=== PATIENT | female | born 1960 | race American Indian/Alaskan Native ===

== ENCOUNTER 2019-04-20 10:08 | Inpatient (IN) | payer MEDICARE ==
--- NOTE | 2019-04-20 10:22 | Emergency Department Report ---
ED Neuro Deficit HPI - General Stated Complaint: HEADACHE Time Seen by Provider: 04/20/19 10:16 Source: patient, EMS - History of Present Illness Initial Comments: Patient is 58 years old female with history of left sided CVA with complete paralysis on the left upper extremity and weakness on the left lower extremity. Patient presented to the ER via EMS for evaluation of possible stroke. Patient stated that her symptoms started yesterday with a headache but today just prior to coming to the emergency room she started experiencing sweating and heaviness in her left lower extremity. Patient stated this is similar to her previous stroke in 2002. Patient denied any speech problem. Stroke protocol immediately initiated. Dr. Chris Cifuentes examined the patient several stroke telemetry. He indicated that patient is not a TPA candidate. He advised patient it to be admitted to stroke workup. He advised patient does not need a CTA neck or head and to proceed with MRA. -: Sudden Location: left leg Presenting Symptoms: Present: Weak/Paralyzed One Side Place: home Context: sudden onset Associated Symptoms: denies other symptoms - Related Data Home Medications: Home Medications Medication Instructions Recorded Confirmed Last Taken Aspirin 325 mg PO QDAY 04/20/19 04/20/19 Unknown Duloxetine HCl [Cymbalta] 60 mg PO QDAY 04/20/19 04/20/19 Unknown Levothyroxine [Synthroid] 25 mcg PO QAM 04/20/19 04/20/19 Unknown Loratadine [Claritin] 10 mg PO DAILY 04/20/19 04/20/19 Unknown Mirabegron [Myrbetriq] 25 mg PO QDAY 04/20/19 04/20/19 Unknown Naproxen [Naprosyn] 500 mg PO DAILY 04/20/19 04/20/19 Unknown Pravastatin [Pravachol] 20 mg PO DAILY 04/20/19 04/20/19 Unknown clonazePAM [ Klonopin] 0.5 mg PO BID PRN 04/20/19 04/20/19 Unknown metFORMIN XR [Glucophage XR] 500 mg PO QDAY 04/20/19 04/20/19 Unknown oxyCODONE /ACETAMINOPHEN [Percocet 1 tab PO BID PRN 04/20/19 04/20/19 Unknown 5/325] traZODone [Desyrel] 50 mg PO QHS 04/20/19 04/20/19 Unknown Allergies/Adverse Reactions: Allergies Allergy/AdvReac Type Severity Reaction Status Date / Time Penicillins Allergy Unknown Verified 04/20/19 10:15 ED Review of Systems ROS: Stated complaint: HEADACHE Other details as noted in HPI Comment: All other systems reviewed and negative Constitutional: denies: chills, fever Respiratory: denies: see HPI, shortness of breath, SOB with exertion Cardiovascular: denies: chest pain, palpitations Gastrointestinal: denies: abdominal pain, nausea, vomiting Musculoskeletal: denies: back pain Neurological: denies: headache, weakness ED Past Medical Hx - Medications Home Medications: Home Medications Medication Instructions Recorded Confirmed Last Taken Type Aspirin 325 mg PO QDAY 04/20/19 04/20/19 Unknown History Duloxetine HCl [Cymbalta] 60 mg PO QDAY 04/20/19 04/20/19 Unknown History Levothyroxine [Synthroid] 25 mcg PO QAM 04/20/19 04/20/19 Unknown History Loratadine [Claritin] 10 mg PO DAILY 04/20/19 04/20/19 Unknown History Mirabegron [Myrbetriq] 25 mg PO QDAY 04/20/19 04/20/19 Unknown History Naproxen [Naprosyn] 500 mg PO DAILY 04/20/19 04/20/19 Unknown History Pravastatin [Pravachol] 20 mg PO DAILY 04/20/19 04/20/19 Unknown History clonazePAM [ Klonopin] 0.5 mg PO BID PRN 04/20/19 04/20/19 Unknown History metFORMIN XR [Glucophage XR] 500 mg PO QDAY 04/20/19 04/20/19 Unknown History oxyCODONE /ACETAMINOPHEN [Percocet 1 tab PO BID PRN 04/20/19 04/20/19 Unknown History 5/325] traZODone [Desyrel] 50 mg PO QHS 04/20/19 04/20/19 Unknown History ED Neuro Physical Exam - General Limitations: Physical Limitation General appearance: alert, in no apparent distress Suspected Stroke: Yes - Head Head exam: Present: atraumatic, normocephalic, normal inspection - Eye Eye exam: Present: normal appearance - ENT ENT exam: Present: normal exam, normal orophraynx, mucous membranes moist - Neck Neck exam: Present: normal inspection, full ROM. Absent: tenderness, meningismus, lymphadenopathy, thyromegaly - Respiratory Respiratory exam: Present: normal lung sounds bilaterally - Cardiovascular Cardiovascular Exam: Present: regular rate, normal rhythm, normal heart sounds - GI/Abdominal GI/Abdominal exam: Present: soft, normal bowel sounds. Absent: distended, tenderness, guarding, rebound, rigid, organomegaly, mass, bruit, pulsatile mass, hernia - Extremities Exam Extremities exam: Present: normal inspection, full ROM. Absent: tenderness, calf tenderness - Back Exam Back exam: Present: normal inspection, full ROM. Absent: CVA tenderness (R), CVA tenderness (L) - Neurological Exam Neurological exam: Present: alert, oriented X3, CN II-XII intact - NIHSS Assessment Interval: Baseline 1a. Level of Consciousness: alert/keenly responsive 1b. LOC Questions: answers both correctly 1c. LOC Commands: performs tasks correctly 2. Best Gaze: normal 3. Visual: no visual loss 4. Facial Palsy: normal symmetrical movement 5b. Motor Arm Right: no drift 5a. Motor Arm Left: no movement 6a. Motor Leg Left: drift 6b. Motor Leg Right: no drift 7. Limb Ataxia: absent 8. Sensory: mild/moderate sensory loss 9. Best Language: no aphasia 10. Dysarthria: normal 11. Extinction/Inattention: no abnormality Total Score: 6 Stroke Severity: Moderate Stroke - Skin Skin exam: Present: warm, intact, normal color ED Course Vital Signs 04/20/19 04/20/19 04/20/19 10:58 11:00 11:08 Temperature 98.5 F Pulse Rate 58 L 57 L Respiratory 13 14 18 Rate Blood Pressure 148/52 Blood Pressure 137/65 [Left] O2 Sat by Pulse 97 95 96 Oximetry 04/20/19 04/20/19 11:45 12:45 Temperature Pulse Rate 58 L 58 L Respiratory 16 13 Rate Blood Pressure 133/62 148/52 Blood Pressure [Left] O2 Sat by Pulse 96 99 Oximetry - Lab Data Result diagrams: 04/20/19 10:30 04/20/19 10:30 Lab Results 04/20/19 04/20/19 04/20/19 Range/Units 10:30 10:30 10:30 WBC 7.8 (4.5-11.0) K/mm3 RBC 4.37 (3.65-5.03) M/mm3 Hgb 13.9 (10.1-14.3) gm/dl Hct 40.6 (30.3-42.9) % MCV 93 (79-97) fl MCH 32 (28-32) pg MCHC 34 (30-34) % RDW 13.6 (13.2-15.2) % Plt Count 283 (140-440) K/mm3 Lymph % (Auto) 22.0 (13.4-35.0) % [place] % (Auto) 6.7 (0.0-7.3) % Eos % (Auto) 1.2 (0.0-4.3) % Baso % (Auto) 1.4 (0.0-1.8) % Lymph # 1.7 (1.2-5.4) K/mm3 [place] # 0.5 (0.0-0.8) K/mm3 Eos # 0.1 (0.0-0.4) K/mm3 Baso # 0.1 (0.0-0.1) K/mm3 Seg Neutrophils % 68.7 (40.0-70.0) % Seg Neutrophils # 5.3 (1.8-7.7) K/mm3 PT 13.4 (12.2-14.9) Sec. INR 0.96 (0.87-1.13) APTT 26.8 (24.2-36.6) Sec. Thrombin Time 15.0 L (15.1-19.6) Sec. Sodium 140 (137-145) mmol/L Potassium 3.8 (3.6-5.0) mmol/L Chloride 99.0 (98-107) mmol/L Carbon Dioxide 28 (22-30) mmol/L Anion Gap 17 mmol/L BUN 10 (7-17) mg/dL Creatinine 0.6 L (0.7-1.2) mg/dL Estimated GFR > 60 ml/min BUN/Creatinine Ratio 17 % Glucose 160 H (65-100) mg/dL POC Glucose (70-105) Calcium 9.1 (8.4-10.2) mg/dL Troponin T < 0.010 (0.00-0.029) ng/mL 04/20/19 Range/Units 10:33 WBC (4.5-11.0) K/mm3 RBC (3.65-5.03) M/mm3 Hgb (10.1-14.3) gm/dl Hct (30.3-42.9) % MCV (79-97) fl MCH (28-32) pg MCHC (30-34) % RDW (13.2-15.2) % Plt Count (140-440) K/mm3 Lymph % (Auto) (13.4-35.0) % [place] % (Auto) (0.0-7.3) % Eos % (Auto) (0.0-4.3) % Baso % (Auto) (0.0-1.8) % Lymph # (1.2-5.4) K/mm3 [place] # (0.0-0.8) K/mm3 Eos # (0.0-0.4) K/mm3 Baso # (0.0-0.1) K/mm3 Seg Neutrophils % (40.0-70.0) % Seg Neutrophils # (1.8-7.7) K/mm3 PT (12.2-14.9) Sec. INR (0.87-1.13) APTT (24.2-36.6) Sec. Thrombin Time (15.1-19.6) Sec. Sodium (137-145) mmol/L Potassium (3.6-5.0) mmol/L Chloride (98-107) mmol/L Carbon Dioxide (22-30) mmol/L Anion Gap mmol/L BUN (7-17) mg/dL Creatinine (0.7-1.2) mg/dL Estimated GFR ml/min BUN/Creatinine Ratio % Glucose (65-100) mg/dL POC Glucose 157 H (70-105) Calcium (8.4-10.2) mg/dL Troponin T (0.00-0.029) ng/mL - EKG Data -: EKG Interpreted by [facility] EKG shows normal: sinus rhythm Rate: normal Interpretation: no acute changes - Radiology Data Radiology results: report reviewed CT brain is negative for acute finding. Old right parietal stroke. - Medical Decision Making Patient is 58 years old female with history of left sided CVA with complete paralysis on the left upper extremity and weakness on the left lower extremity. Patient presented to the ER via EMS for evaluation of possible stroke. Patient stated that her symptoms started yesterday with a headache but today just prior to coming to the emergency room she started experiencing sweating and heaviness in her left lower extremity. Patient stated this is similar to her previous st roke in 2002. Patient denied any speech problem. Stroke protocol immediately initiated. Dr. Chris Cifuentes examined the patient several stroke telemetry. He indicated that patient is not a TPA candidate. He advised patient it to be admitted to stroke workup. He advised patient does not need a CTA neck or head and to proceed with MRA. I discussed the patient with Dr Dhaliwal, he agreed to admit to medical service for further management. Critical Care Time: Yes Critical care time in (mins) excluding proc time.: 30 Critical care attestation.: If time is entered above; I have spent that time in minutes in the direct care of this critically ill patient, excluding procedure time. ED Disposition Clinical Impression: Left hemiparesis CVA (cerebral vascular accident) Qualifiers: Precerebral and cerebral artery: middle cerebral artery Laterality of affected vessel: right Disposition: DC-09 OP ADMIT IP TO THIS HOSP Is pt being admited?: Yes Condition: Stable
--- NOTE | 2019-04-20 10:36 | Cat Scan Report ---
PROCEDURE: CT HEAD/BRAIN WO CON TECHNIQUE: A noncontrast CT of the head was performed. HISTORY: neuro deficits <6hrs or sx present upon awakening COMPARISON: None FINDINGS: There is a large old right frontal parietal infarct. There is no acute intracranial hemorrhage. There is no brain edema, mass effect or midline shift. Ventricular size is appropriate for brain volume. There is no skull fracture seen. There is opacification of left maxillary sinus. 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 IMPRESSION: There is no acute intracranial abnormality seen. Large old right frontal parietal infarc t. This document is electronically signed by Deloris Price MD., April 20 2019 10:33:56 AM ET
[2019-04-20 10:44] LABS: Basophils # (Auto) 0.1 K/mm3 (0.0-0.1); Basophils % (Auto) 1.4 % (0.0-1.8); Eosinophils # (Auto) 0.1 K/mm3 (0.0-0.4); Eosinophils % (Auto) 1.2 % (0.0-4.3); Hematocrit 40.6 % (30.3-42.9); Hemoglobin 13.9 gm/dl (10.1-14.3); Lymphocytes # (Auto) 1.7 K/mm3 (1.2-5.4); Mean Corpuscular HGB Conc 34 % (30-34); Mean Corpuscular Volume 93 fl (79-97); Monocytes # (Auto) 0.5 K/mm3 (0.0-0.8); Monocytes % (Auto) 6.7 % (0.0-7.3); Platelet Count 283 K/mm3 (140-440); Red Blood Count 4.37 M/mm3 (3.65-5.03); Red Cell Distribution Width 13.6 % (13.2-15.2)
[2019-04-20 11:04] LABS: BUN/Creatinine Ratio 17; Blood Urea Nitrogen 10 mg/dL (7-17); Calcium 9.1 mg/dL (8.4-10.2); Hemolysis Index 7
[2019-04-20 11:10] LABS: INR 0.96 (0.87-1.13)
[2019-04-20 11:11] LABS: Partial Thromboplastin Time 26.8 Sec. (24.2-36.6)
--- NOTE | 2019-04-20 11:35 | Emergency Department Report ---
ED Neuro Deficit HPI - General Chief Complaint: Neuro Symptoms/Deficit Stated Complaint: HEADACHE Time Seen by Provider: 04/20/19 10:16 Source: patient, EMS Mode of arrival: Stretcher Limitations: Physical Limitation - History of Present Illness Initial Comments: * past R MCA stroke in 2002, residual L side weakness * also L ankle injury 2013, wears boot chronically since then * to bed at baseline last evening at 2030 * up at 0930, noted to be diaphoretic * attempted to walk to bathroom, noted imbalance (more than normal) * in bathroom to prevent herself from falling had to grab the shower door * states felt like LLE was a bit weaker * also noted prominent headache * to ER for further evaluation * arrived at 1008 * call to teleneuro at 1017 * connected at 1022 * eval at 1026 * NIHSS 6, but all appear chronic based on appearance (inc tone) and description by patient * no tPA due to no acute neurological symptoms * no DAPHNIE as no LVO symptoms (no visual field deficit, no aphasia, no neglect, no new dense HP) * CT head shows large area of R MCA territory cystic encephalomalacia consistent with prior stroke -: Sudden Time: 10:26 Last Observed Normal: 20:30 (last night 04/19/19) Location: left leg Presenting Symptoms: Present: Weak/Paralyzed One Side History of same: Yes (residual L HP from old R MCA stroke 2002) Place: home Associated Symptoms: headaches - Related Data Allergies/Adverse Reactions: Allergies Allergy/AdvReac Type Severity Reaction Status Date / Time Penicillins Allergy Unknown Verified 04/20/19 10:15 ED Review of Systems ROS: Stated complaint: HEADACHE Other details as noted in HPI Constitutional: denies: chills, fever Respiratory: denies: see HPI, shortness of breath, SOB with exertion Cardiovascular: denies: chest pain, palpitations Gastrointestinal: denies: abdominal pain, nausea, vomiting Musculoskeletal: denies: back pain Neurological: denies: headache, weakness ED Past Medical Hx - Past Medical History Previous Medical History?: Yes Hx Hypertension: Yes Additional medical history: Stroke - Social History Smoking Status: Current Every Day Smoker Substance Use Type: Alcohol ED Neuro Physical Exam - General Limitations: Physical Limitation General appearance: alert, in no apparent distress Suspected Stroke: Yes - NIHSS Assessment Interval: Baseline 1a. Level of Consciousness: alert/keenly responsive 1b. LOC Questions: answers both correctly 1c. LOC Commands: performs tasks correctly 2. Best Gaze: normal 3. Visual: no visual loss 4. Facial Palsy: minor paralysis 5b. Motor Arm Right: no drift 5a. Motor Arm Left: no gravity effort 6a. Motor Leg Left: drift 6b. Motor Leg Right: no drift 7. Limb Ataxia: absent 8. Sensory: mild/moderate sensory loss 9. Best Language: no aphasia 10. Dysarthria: normal 11. Extinction/Inattention: no abnormality Total Score: 6 Stroke Severity: Moderate Stroke ED Course Vital Signs 04/20/19 04/20/19 10:58 11:08 Temperature 98.5 F Pulse Rate 58 L Respiratory 13 18 Rate Blood Pressure 137/65 [Left] O2 Sat by Pulse 97 96 Oximetry - Consultations Consultation #1: 04/20/19 11:38 Teleneurology Impression/Plan" Imbalance Chronic L HP * old R MCA stroke, chr L hemiparesis (arm > leg) * new imbalance this AM, ? if worsened LLE weakness * now seems at or near described baseline * NIHSS 6 * no tPA due to time --> last normal when to bed at 2030 * no DAPHNIE as no LVO pattern of acute symptoms * admission for further work-up * ASA OK * dysphagia screen * DVT prophylaxis * discussed with ED physician - Lab Data Result diagrams: 04/20/19 10:30 04/20/19 10:30 Lab Results 04/20/19 04/20/19 04/20/19 Range/Units 10:30 10:30 10:30 WBC 7.8 (4.5-11.0) K/mm3 RBC 4.37 (3.65-5.03) M/mm3 Hgb 13.9 (10.1-14.3) gm/dl Hct 40.6 (30.3-42.9) % MCV 93 (79-97) fl MCH 32 (28-32) pg MCHC 34 (30-34) % RDW 13.6 (13.2-15.2) % Plt Count 283 (140-440) K/mm3 Lymph % (Auto) 22.0 (13.4-35.0) % [place] % (Auto) 6.7 (0.0-7.3) % Eos % (Auto) 1.2 (0.0-4.3) % Baso % (Auto) 1.4 (0.0-1.8) % Lymph # 1.7 (1.2-5.4) K/mm3 [place] # 0.5 (0.0-0.8) K/mm3 Eos # 0.1 (0.0-0.4) K/mm3 Baso # 0.1 (0.0-0.1) K/mm3 Seg Neutrophils % 68.7 (40.0-70.0) % Seg Neutrophils # 5.3 (1.8-7.7) K/mm3 PT 13.4 (12.2-14.9) Sec. INR 0.96 (0.87-1.13) APTT 26.8 (24.2-36.6) Sec. Thrombin Time 15.0 L (15.1-19.6) Sec. Sodium 140 (137-145) mmol/L Potassium 3.8 (3.6-5.0) mmol/L Chloride 99.0 (98-107) mmol/L Carbon Dioxide 28 (22-30) mmol/L Anion Gap 17 mmol/L BUN 10 (7-17) mg/dL Creatinine 0.6 L (0.7-1.2) mg/dL Estimated GFR > 60 ml/min BUN/Creatinine Ratio 17 % Glucose 160 H (65-100) mg/dL Calcium 9.1 (8.4-10.2) mg/dL Troponin T < 0.010 (0.00-0.029) ng/mL - Radiology Data Radiology results: image reviewed CT head - reviewed - chronic cystic encephalomalacia R MCA territory c/w remote stroke - Thrombolytic Inclusion/Exclusion Thrombolytic Exclusion Criteria: Symptom Onset > 3 Hours Critical care attestation.: If time is entered above; I have spent that time in minutes in the direct care of this critically ill patient, excluding procedure time. ED Disposition Clinical Impression: Left hemiparesis Disposition: DC-09 OP ADMIT IP TO THIS HOSP Is pt being admited?: Yes Condition: Stable Referrals: CAYETANO JUARES MD [Primary Care Provider] - 3-5 Days
[2019-04-20] MEDS ORDERED: TYLENOL PO ONE (11:51)
[2019-04-20] MEDS ORDERED: TYLENOL ONE (11:54)
[2019-04-20] MEDS ORDERED: DULCOLAX PR PRN (12:06)
[2019-04-20] MEDS ORDERED: ZOFRAN IV PRN (12:06)
[2019-04-20] MEDS ORDERED: MILK OF MAGNESIA PO PRN (12:06)
[2019-04-20] MEDS ORDERED: REGLAN PO PRN (12:06)
[2019-04-20] MEDS ORDERED: PROVENTIL IH PRN (12:06)
[2019-04-20] MEDS ORDERED: PHENERGAN PR PRN (12:06)
[2019-04-20] MEDS ORDERED: SODIUM CHLORIDE FLUSH SYRINGE 10 ML IV PRN (12:06)
--- NOTE | 2019-04-20 12:06 | History and Physical Report ---
History of Present Illness Chief complaint: I feel weak History of present illness: 58 YO Female with HTN, HLD, CVA with LHP, Hypothyroidism, DM presents to ED for evaluation. Pt states that she has experienced weakness in her left leg over the past 1 day with persistent symptoms over the same time frame. Pt states that symptoms did not improve or resolve. EMS notified, and upon arrival the patient was found to have a neurologic deficit. A code stroke was called and the patient transported to [facility]. Pt seen and evaluated in ED. Teleneurology consulted in ED. Pt deemed not a candidate for TPA. Pt admitted to telemetry and initiated on CVA protocol. Pt denies fever, chills, CP, Palpitations, NVD, Trauma, Syncope, Productive cough, loss of bowel/bladder continence. No prior admission for review. All listed medication reconciled at time of admission. Neurology consulted in ED. Past History Past Medical History: hypertension, hyperlipidemia, hypothyroidism, stroke, other (Depression) Past Surgical History: No surgical history, Other (reviewed) Social history: single. denies: smoking, alcohol abuse Family history: hypertension Medications and Allergies Allergies Allergy/AdvReac Type Severity Reaction Status Date / Time Penicillins Allergy Unknown Verified 04/20/19 10:15 Home Medications Medication Instructions Recorded Confirmed Last Taken Type Aspirin 325 mg PO QDAY 04/20/19 04/20/19 Unknown History Duloxetine HCl [Cymbalta] 60 mg PO QDAY 04/20/19 04/20/19 Unknown History Levothyroxine [Synthroid] 25 mcg PO QAM 04/20/19 04/20/19 Unknown History Loratadine [Claritin] 10 mg PO DAILY 04/20/19 04/20/19 Unknown History Mirabegron [Myrbetriq] 25 mg PO QDAY 04/20/19 04/20/19 Unknown History Naproxen [Naprosyn] 500 mg PO DAILY 04/20/19 04/20/19 Unknown History Pravastatin [Pravachol] 20 mg PO DAILY 04/20/19 04/20/19 Unknown History clonazePAM [ Klonopin] 0.5 mg PO BID PRN 04/20/19 04/20/19 Unknown History metFORMIN XR [Glucophage XR] 500 mg PO QDAY 04/20/19 04/20/19 Unknown History oxyCODONE /ACETAMINOPHEN [Percocet 1 tab PO BID PRN 04/20/19 04/20/19 Unknown History 5/325] traZODone [Desyrel] 50 mg PO QHS 04/20/19 04/20/19 Unknown History Review of Systems Constitutional: no weight loss, no fever, no sweats Ears, nose, mouth and throat: no ear pain, no ear discharge, no nose pain, no nasal discharge Breasts: no change in shape, no swelling, no mass Cardiovascular: no chest pain, no orthopnea, no palpitations, no edema Respiratory: no excessive sputum, no hemoptysis, no shortness of breath Gastrointestinal: no abdominal pain, no vomiting, no constipation, no hematemesis Genitourinary Female: no pelvic pain, no flank pain, no post void dribbling Rectal: no pain, no incontinence, no bleeding Musculoskeletal: no neck stiffness, no neck pain, no shooting arm pain, no arm numbness/tingling Integumentary: no rash, no pruritis, no redness, no sores Neurological: weakness, parathesias, lack of coordination, gait dysfunction, no seizures, no syncope, no change in speech Psychiatric: no anxiety, no change in sleep habits, no insomnia, no change in appetite Endocrine: no cold intolerance, no polyphagia, no polydipsia, no nocturia Hematologic/Lymphatic: no easy bruising, no easy bleeding, no lymphadenopathy, no lymphedema Allergic/Immunologic: no urticaria, no allergic rhinitis, no wheezing Exam - Constitutional Vitals: Temp Pulse Resp BP Pulse Ox 98.5 F 58 L 18 137/65 96 04/20/19 10:58 04/20/19 10:58 04/20/19 11:08 04/20/19 10:58 04/20/19 11:08 General appearance: Present: mild distress - EENT Eyes: Present: PERRL ENT: hearing intact, clear oral mucosa - Neck Neck: Present: supple, normal ROM - Respiratory Respiratory effort: normal Respiratory: bilateral: CTA - Cardiovascular Heart Sounds: Present: S1 & S2. Absent: rub, click - Extremities Extremities: pulses symmetrical, No edema Peripheral Pulses: within normal limits - Abdominal General gastrointestinal: Present: soft, non-tender, non-distended, normal bowel sounds Female genitourinary: Present: normal - Integumentary Integumentary: Present: clear, warm, dry - Musculoskeletal Musculoskeletal: left sided weakness - Psychiatric Psychiatric: appropriate mood/affect, intact judgment & insight - Neurologic Neurologic: CNII-XII intact, moves all extremities, no gait normal Results - Labs CBC & Chem 7: 04/20/19 10:30 04/20/19 10:30 Labs: Abnormal lab results 04/20/19 04/20/19 Range/Units 10:30 10:30 Thrombin Time 15.0 L (15.1-19.6) Sec. Creatinine 0.6 L (0.7-1.2) mg/dL Glucose 160 H (65-100) mg/dL Assessment and Plan - Patient Problems (1) CVA (cerebral vascular accident) Current Visit: Yes Status: Acute Qualifiers: Precerebral and cerebral artery: middle cerebral artery Laterality of affected vessel: right Plan to address problem: Stroke Protocol: CT Head, MRI Brain, MRA, Echo, CArotid doppler, PT/OT/Speech therapy, lipid panel, statin therapy, antiplatelet therapy, neurology consulted, permissive hypertension overnight. (2) HTN (hypertension) Current Visit: Yes Status: Acute Qualifiers: Hypertension type: essential hypertension Qualified Code(s): I10 - Essential (primary) hypertension Plan to address problem: Monitor BP q shift, permissive hypertensioin overnight (3) HLD (hyperlipidemia) Current Visit: Yes Status: Acute Qualifiers: Hyperlipidemia type: mixed hyperlipidemia Qualified Code(s): E78.2 - Mixed hyperlipidemia Plan to address problem: lipid panel, statin therapy, (4) Hypothyroid Current Visit: Yes Status: Acute Qualifiers: Hypothyroidism type: acquired Qualified Code(s): E03.9 - Hypothyroidism, unspecified Plan to address problem: continue synthroid, supportive care. (5) DVT prophylaxis Current Visit: Yes Status: Acute Plan to address problem: SCD to BLE while in bed, (6) Left hemiparesis Current Visit: Yes Status: Acute
[2019-04-20] MEDS ORDERED: PERCOCET 5/325 PO PRN (12:09)
[2019-04-20] MEDS: TYLENOL PO PRN (16:45)
--- NOTE | 2019-04-20 19:00 | Magnetic Resonance Report ---
PROCEDURE: MR BRAIN WO CON TECHNIQUE: Magnetic resonance imaging of the brain was performed without contrast material. HISTORY: stroke COMPARISONS: Prior CT scan of the brain 04/20/2019 . FINDINGS: There is a large area of encephalomalacia involving the right frontal lobe, portions of the right tem poral lobe right parietal lobe and insular cortex and portions of the right basal ganglia. Portions o f the right thalamus also visualized. This all appears chronic. There is no abnormal restricted diffu maria c that would suggest an acute ischemic event. No intracranial hemorrhage is visualized. There is m ild compensatory enlargement of the right lateral ventricle. The ventricles are otherwise normal size and midline. No abnormal extra-axial fluid collections or masses are identified. Pituitary fossa and foramen magnum are unremarkable. Encephalomalacia involves portions of the right side of the corpus callosum which is otherwise unremarkable. There is complete opacification of the left maxillary sinus. Suspect there is mucosal thickening and possibly mucous retention cysts. I cannot exclude fluid in the left maxillary sinus. Paranasal sinuse s otherwise are clear. Mastoid air cells are clear. IMPRESSION: Large old area of encephalomalacia seen involving right middle cerebral and right anterior cerebral a rtery distribution. No acute intracranial abnormalities are seen. No evidence of acute ischemic event . Compensatory enlargement right lateral ventricle. The ventricles are midline. No evidence of intracranial hemorrhage. Paranasal sinus disease as described. This document is electronically signed by Leonardo Mcclure MD., April 20 2019 06:58:49 PM ET
--- NOTE | 2019-04-20 19:08 | Magnetic Resonance Report ---
PROCEDURE: MR MRA/MRV HEAD WO CON TECHNIQUE: Axial 3-D [id number] MR angiography of the [place] and brain was performed. The source images were reconstructed in various views using maximum intensity projection. HISTORY: stroke COMPARISONS: None . FINDINGS: Visualized vertebral arteries are patent. There is a dominant left vertebral artery, normal variant. The basilar artery appears widely patent. Posterior cerebral arteries are patent. There is a patent r ight posterior communicating artery. Visualized internal carotid arteries appear widely patent. The carotid siphons are widely patent. Mid dle cerebral arteries and A1 segments as well as the anterior cerebral artery are patent. Peripheral branches of the right middle cerebral artery are decreased in number. Peripheral branches of the left middle cerebral artery are unremarkable. No changes are seen that would suggest aneurysm or vascular malformation. IMPRESSION: The anterior and middle cerebral arteries bilaterally are patent however the peripheral branches of t he right middle cerebral artery and right anterior cerebral artery are decreased in number. This does correspond to the large areas of encephalomalacia seen on the MRI of the brain also performed today. Posterior circulation is intact. This document is electronically signed by Leonardo Mcclure MD., April 20 2019 07:06:50 PM ET
[2019-04-21] MEDS: DESYREL PO SCH ×2 (03:31→22:07)
[2019-04-21] MEDS: SYNTHROID PO SCH (09:42)
[2019-04-21] MEDS: CYMBALTA PO SCH (09:42)
[2019-04-21] MEDS: CLARITIN PO SCH (09:42)
[2019-04-21] MEDS: NAPROSYN PO SCH (09:42)
[2019-04-21] MEDS: ASPIRIN PO SCH (09:42)
[2019-04-21] MEDS ORDERED: NON-FORMULARY (Duloxetine Hcl [Cymbalta] 60 MG) PO SCH (10:00)
[2019-04-21] MEDS ORDERED: NON-FORMULARY (Mirabegron [Myrbetriq] 25 MG) PO SCH (10:00)
[2019-04-21 10:55] LABS: Chol/HDL Ratio 3.56 %
--- NOTE | 2019-04-21 16:42 | Progress Note ---
Assessment and Plan Possible TIA - Patient admitted with stroke protocol - Negative MRI/MRA - Continue aspirin and statin - Knee relieve L pending - We'll also follow PT recommendation and 2-D echo report History of previous CVA, continue supportive care, follow neuro recommendation and PT eval Hypothyroidism, continue Synthroid Diabetes mellitus type 2 - Continue consistent carb diet with SSI Hyperlipidemia, continue statin DVT prophylaxis, continue Lovenox Disposition: Likely tomorrow following neuro recommendation and pending 2-D echo report Brief History: Patient is 58 years old female with history of left sided CVA with complete paralysis on the left upper extremity and weakness on the left lower extremity presented to the ER via EMS for evaluation of headache and heaviness in her left lower extremity. Patient stated this is similar to her previous stroke in 2002. Patient denied any speech problem. Stroke protocol immediately initiated. Dr. Chris Cifuentes examined the patient several stroke telemetry. He indicated that patient is not a TPA candidate. He advised patient it to be admitted to stroke workup. He advised patient does not need a CTA neck or head and to proceed with MRA. Radiological data: CT head MRI/MRA brain pending 2-D echo Hospitalist Physical exam: GENERAL: well-developed and well-nourished white female lying on bed appeared to be in no discomfort. HEENT: Normocephalic. Atraumatic. No conjunctival congestion or icterus. P atient has moist mucous membranes. NECK: Supple. Trachea midline. CHEST/LUNGS: Clear to auscultated bilaterally, breathing nonlabored. No wheezes crackles or rhonchi. HEART/CARDIOVASCULAR: Regular in rate and rhythm. S1 and S2 positive. ABDOMEN: Abdomen is soft, nontender. Patient has normal bowel sounds. SKIN: There is no rash. Warm and dry. NEURO: Left-sided weakness. Follows command. MUSCULOSKELETAL: No joint effusion or tenderness. EXTRIMITY: No edema, no cyanosis or clubbing. PSYCH: Cooperative. Subjective Date of service: 04/21/19 Interval history: Patient seen and examined. Medical records and medication list reviewed. No acute event overnight noted by the RN. Patient denies any chest pain or difficulty breathing. Patient is tolerating diet. Discussed plan of care at bedside with patient. Objective - Constitutional Vitals: Vital Signs - 12hr 04/21/19 04/21/19 07:52 10:00 Temperature 98.8 F Pulse Rate 57 L Respiratory 16 Rate Blood Pressure 111/46 O2 Sat by Pulse 94 94 Oximetry - Labs CBC & Chem 7: 04/20/19 10:30 04/20/19 10:30 Labs: Abnormal lab results 04/20/19 04/20/19 04/21/19 Range/Units 18:17 21:08 07:18 POC Glucose 150 H 122 H 160 H (70-105) Triglycerides (2-149) mg/dL 04/21/19 Range/Units 09:49 POC Glucose (70-105) Triglycerides 201 H (2-149) mg/dL
[2019-04-21] MEDS: HumaLOG SUB-Q SCH (22:16)
--- NOTE | 2019-04-22 09:13 | Progress Note ---
Subjective Date of service: 04/22/19 Interval history: patient seen and assessed PMH of massive brain bleed due to BCP in 2002 in [place] now new onset of severe sweating andf headaches could be TIA therefore w/u is pending plan review all labs exam shows old left arm paralysis Thanks Objective - Vital Sign Vital Signs - 12hr 04/21/19 04/22/19 04/22/19 23:29 02:36 04:13 Temperature 98.0 F 98.0 F Pulse Rate 71 71 56 L Respiratory 18 18 Rate Blood Pressure 115/51 108/48 O2 Sat by Pulse 96 96 Oximetry 04/22/19 04/22/19 07:10 08:42 Temperature 98.2 F Pulse Rate Respiratory 18 Rate Blood Pressure 122/50 O2 Sat by Pulse 95 Oximetry - Laboratory Findings CBC and BMP: 04/20/19 10:30 04/20/19 10:30 Abnormal Lab Findings: Abnormal Labs 04/20/19 04/20/19 04/20/19 10:30 10:30 10:33 Thrombin Time 15.0 L Creatinine 0.6 L Glucose 160 H POC Glucose 157 H Triglycerides 04/20/19 04/20/19 04/21/19 18:17 21:08 07:18 Thrombin Time Creatinine Glucose POC Glucose 150 H 122 H 160 H Triglycerides 04/21/19 04/21/19 04/21/19 09:49 16:35 20:20 Thrombin Time Creatinine Glucose POC Glucose 158 H 152 H Triglycerides 201 H 04/22/19 07:16 Thrombin Time Creatinine Glucose POC Glucose 163 H Triglycerides
[2019-04-22] MEDS: SYNTHROID PO SCH (09:32)
[2019-04-22] MEDS: CYMBALTA PO SCH (09:32)
[2019-04-22] MEDS: CLARITIN PO SCH (09:33)
[2019-04-22] MEDS: ASPIRIN PO SCH (09:33)
[2019-04-22] MEDS: NAPROSYN PO SCH (09:33)
[2019-04-22] MEDS: HumaLOG SUB-Q SCH ×3 (09:34→22:31)
--- NOTE | 2019-04-22 13:04 | Discharge Summary ---
Providers - Providers Date of Admission: 04/20/19 12:06 Date of discharge: 04/22/19 Attending physician: NEDA LOUISE 04/20/19 12:07 Occupational Therapy Evaluate and Treat [CONS] Routine Comment: Reason For Exam: Neuro deficits Physical Therapy Evaluation and Treat [CONS] Routine Comment: Reason For Exam: Neuro deficits 04/20/19 12:08 Speech Therapy Evaluation and Treat [CONS] Routine Reason For Exam: swallow eval 04/21/19 16:37 Consult to Physician [CONS] Routine Comment: Consulting Provider: LUDY DUARTE Physician Instructions: Reason For Exam: headache [facility] Condition: Stable Hospital course: Brief History: Patient is 58 years old female with history of left sided CVA with complete paralysis on the left upper extremity and weakness on the left lower extremity presented to the ER via EMS for evaluation of headache and heaviness in her left lower extremity. Patient stated this is similar to her previous stroke in 2002. Patient denied any speech problem. Stroke protocol immediately initiated. Dr. Chris Cifuentes examined the patient several stroke telemetry. He indicated that patient is not a TPA candidate. He advised patient it to be admitted to stroke workup. He advised patient does not need a CTA neck or head and to proceed with MRA. Patient had negative MRI/MRA, 2-D echo showed preserved EF, PT recommended outpatient PT, neurology recommended to continue aspirin and statin. patient was then discharged home in stable condition with outpt followup. Radiological data: CT head MRI/MRA brain 2-D echo EEG Discharge diagnosis: Possible TIA - Patient admitted with stroke protocol - Negative MRI/MRA - Continue aspirin and statin -2-D echo showed preserved EF -PT recommended outpatient PT - EEG ordered by neurologist, patient will follow-up report is a patient History of previous CVA, continue supportive care, Hypothyroidism, continue Synthroid Diabetes mellitus type 2 - managed with consistent carb diet with SSI Hyperlipidemia, continue statin DVT prophylaxis, continue Lovenox Disposition: home with outpt PT Hospitalist Physical exam: GENERAL: well-developed and well-nourished white female lying on bed appeared to be in no discomfort. HEENT: Normocephalic. Atraumatic. No conjunctival congestion or icterus. Patient has moist mucous membranes. NECK: Supple. Trachea midline. CHEST/LUNGS: Clear to auscultated bilaterally, breathing nonlabored. No wheezes crackles or rhonchi. HEART/CARDIOVASCULAR: Regular in rate and rhythm. S1 and S2 positive. ABDOMEN: Abdomen is soft, nontender. Patient has normal bowel sounds. SKIN: There is no rash. Warm and dry. NEURO: Left-sided weakness. Follows command. MUSCULOSKELETAL: No joint effusion or tenderness. EXTRIMITY: No edema, no cyanosis or clubbing. PSYCH: Cooperative. Disposition: DC-01 TO HOME OR SELFCARE Time spent for discharge: 34 minutes Core Measure Documentation - Palliative Care Palliative Care/ Comfort Measures: Not Applicable - Core Measures Any of the following diagnoses?: stroke - Stroke Discharge Requirements Statin for LDL = or >70 mg/dl on DC: Yes Anticoag for atrial fib/atrial flutter: Not Applicable Antithrombotic for ischemic stroke: Yes Exam - Constitutional Vitals: Temp Pulse Resp BP Pulse Ox 98.1 F 80 18 109/50 95 04/22/19 11:18 04/22/19 12:00 04/22/19 11:18 04/22/19 11:18 04/22/19 08:42 Plan Activity: fall precautions Weight Bearing Status: Partial Weight Bearing Diet: low fat, low salt, diabetic Special Instructions: record daily BP diary Durable Medical Equipment Needed Upon Discharge: Cane Additional Instructions: outpt PT. f/u with dr Duarte Follow up with: [facility] [Primary Care Provider] - 3-5 Days LUDY DUARTE MD [Staff Physician] - 7 Days Prescriptions: AtorvaSTATin [Lipitor] 40 mg PO QHS #30 tablet Other Discharge Orders: Physicial Therapy (Amb) Location: None Selected
--- NOTE | 2019-04-22 15:17 | Vascular Lab Report ---
PROCEDURE: VL CAROTID DUPLEX BILAT HISTORY: stroke FINDINGS: Real-time ultrasound of the cervical arterial vasculature was performed using grayscale and color Doppler images. On the right, peak systolic velocity in the common carotid artery was 101 cm/s. In the internal carot id it was 66 cm/s and in the external carotid 85 cm/s. Flow in the vertebral artery was antegrade at 69 cm/s. The ratio of flow of the internal carotid to the common carotid was 0.65 which is within nor mal limits. On the left, peak systolic velocity in the common carotid artery was 105 cm/s. In the internal caroti d it was 71 cm/s and in the external carotid 79 cm/s. Flow in the vertebral artery was antegrade at 5 9 cm/s. The ratio of flow of the internal carotid to the common carotid was 0.68 which is within norm al limits. IMPRESSION: No stenosis of greater than 50% is seen in the cervical arterial vasculature This document is electronically signed by Surendra Mckeon MD., April 22 2019 03:15:03 PM ET
--- NOTE | 2019-04-22 16:35 | Progress Note ---
Subjective Date of service: 04/22/19 Interval history: THE MRI OF THER BRAIN DOES NOT SHOW NEW STROKE OR EVIDENCE OF VASCULITIS THE PATIENT MAY GO HOME SHE HAS NO EVIDENCE OF SEIZURES ON THE EEG... I WILL FOLLOW UP IN OFFICE Objective - Vital Sign Vital Signs - 12hr 04/22/19 04/22/19 04/22/19 07:10 08:42 11:18 Temperature 98.2 F 98.1 F Pulse Rate Respiratory 18 18 Rate Blood Pressure 122/50 109/50 O2 Sat by Pulse 95 Oximetry 04/22/19 12:00 Temperature Pulse Rate 80 Respiratory Rate Blood Pressure O2 Sat by Pulse Oximetry - Laboratory Findings CBC and BMP: 04/20/19 10:30 04/20/19 10:30 Abnormal Lab Findings: Abnormal Labs 04/20/19 04/20/19 04/20/19 10:30 10:30 10:33 Thrombin Time 15.0 L Creatinine 0.6 L Glucose 160 H POC Glucose 157 H Triglycerides 04/20/19 04/20/19 04/21/19 18:17 21:08 07:18 Thrombin Time Creatinine Glucose POC Glucose 150 H 122 H 160 H Triglycerides 04/21/19 04/21/19 04/21/19 09:49 16:35 20:20 Thrombin Time Creatinine Glucose POC Glucose 158 H 152 H Triglycerides 201 H 04/22/19 04/22/19 07:16 11:22 Thrombin Time Creatinine Glucose POC Glucose 163 H 111 H Triglycerides
[2019-04-22] MEDS: TYLENOL PO PRN (21:23)
[2019-04-22] MEDS: DESYREL PO SCH (21:23)
[2019-04-23] MEDS: TYLENOL PO PRN (05:20)
[2019-04-23 06:29] VITALS: BP 123/53
[2019-04-23] MEDS: CYMBALTA PO SCH (09:49)
[2019-04-23] MEDS: NAPROSYN PO SCH (09:50)
[2019-04-23] MEDS: CLARITIN PO SCH (09:50)
[2019-04-23] MEDS: ASPIRIN PO SCH (09:50)
[2019-04-23] MEDS: SYNTHROID PO SCH (09:50)
--- NOTE | 2019-04-23 11:45 | Consultation ---
ROOM: #[id number]. HISTORY OF PRESENT ILLNESS: The patient is a 58-year-old female who presents to the Emergency Room at [facility] with sudden onset of severe sweating reaction, had severe headache, feeling of dizziness, lightheadedness, and impending stroke. 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 Etiology of this is not clear, but she may have had a thrombosis of the artery and subsequent hemorrhagic infarction. This occurred in [place], [place]. She was left with a dense hemiparesis on the left side primarily along the arm, but also the leg. She has had difficulty with balance, difficulty with rehab since. By history, she took many, many years of rehab with minimal improvement in function, almost no function in the left arm, but she has maintained rather independent lifestyle, generally has done well. According to her history, her last seizure was about 8 years ago and has not had any since. ALLERGIES: She has allergies to PENICILLIN. SOCIAL HISTORY: Denies drinking, denies smoking. She is not able to work. She is disabled. PHYSICAL EXAMINATION: NEUROLOGIC AND EXTREMITIES: She is alert and responsive. Affect is appropriate. Speech is clear. She has a dense left arm paresis. She can stand. She can barely walk. She cannot dress herself well. She has problems with balance. Her cranial nerves are intact with the exception of a very mild central facial weakness on the left side. Reflexes are symmetrical. Motor tone is completely reduced and spastic in the left side as she has difficulty turning. I do not find that she has any neck rigidity. Her ocular movements are full. She has a visual field cut to the left side. No seizure activity is present. No tremors. No asterixis. No other focal motor abnormality. Tone is present. IMPRESSION: Onset of severe headaches with autonomic symptoms of sweating and likely dysautonomic symptoms. This could be central possibility of some form of vascular syndrome should be considered. I do not find on examination, she has evidence to suggest she has recurrent stroke. This would actually be unusual given the severity of the occlusive disease in her right hemisphere. I will get an EEG and she may have had a seizure. We will review other medicines that she is taking. ADDENDUM Discussion with the patient was made regarding results of EEG. DISCHARGE PLANNING: Plan to see the patient in the office following discharge. discharge. 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 This is not a recurrent stroke. JOB# [id number] PAMELLA/WILBER
--- NOTE | 2019-04-23 15:55 | Progress Note ---
Assessment and Plan Possible TIA - Patient admitted with stroke protocol - Negative MRI/MRA - Continue aspirin and statin -2-D echo showed preserved EF -PT recommended outpatient PT - EEG ordered by neurologist and that did not show any seizure-like activity History of previous CVA, continue supportive care, follow neuro recommendation and PT eval Hypothyroidism, continue Synthroid Diabetes mellitus type 2 - Continue consistent carb diet with SSI Hyperlipidemia, continue statin Homelessness, nurse case manager consulted DVT prophylaxis, continue Lovenox Disposition: Likely tomorrow per CM Brief History: Patient is 58 years old female with history of left sided CVA with complete paralysis on the left upper extremity and weakness on the left lower extremity presented to the ER via EMS for evaluation of headache and heaviness in her left lower extremity. Patient stated this is similar to her previous stroke in 2002. Patient denied any speech problem. Stroke protocol immediately initiated. Dr. Chris Cifuentes examined the patient several stroke telemetry. He indicated that patient is not a TPA candidate. He advised patient it to be admitted to stroke workup. He advised patient does not need a CTA neck or head and to proceed with MRA. Radiological data: CT head MRI/MRA brain pending 2-D echo Hospitalist Physical exam: GENERAL: well-developed and well-nourished white female lying on bed appeared to be in no discomfort. HEENT: Normocephalic. Atraumatic. No conjunctival congestion or icterus. Patient has moist mucous membranes. NECK: Supple. Trachea midline. CHEST/LUNGS: Clear to auscultated bilaterally, breathing nonlabored. No wheezes crackles or rhonchi. HEART/CARDIOVASCULAR: Regular in rate and rhythm. S1 and S2 positive. ABDOMEN: Abdomen is soft, nontender. Patient has normal bowel sounds. SKIN: There is no rash. Warm and dry. NEURO: Left-sided weakness. Follows command. MUSCULOSKELETAL: No joint effusion or tenderness. EXTRIMITY: No edema, no cyanosis or clubbing. PSYCH: Cooperative. Subjective Date of service: 04/23/19 Interval history: Patient seen and examined. Medical records and medication list reviewed. No acute event overnight noted by the RN. Patient denies any chest pain or difficulty breathing. Patient is tolerating diet. Discussed plan of care at bedside with patient. Patient was planned to discharge today but when she was given discharge she then revealed that she is homeless and she cannot get discharged today Objective - Constitutional Vitals: Vital Signs - 12hr 06/14/19 04:35 Temperature 97.3 F L Pulse Rate 61 Respiratory 20 Rate Blood Pressure 123/53 O2 Sat by Pulse 94 Oximetry - Labs CBC & Chem 7: 04/20/19 10:30 04/20/19 10:30 Labs: Abnormal lab results 04/22/19 04/22/19 04/23/19 Range/Units 16:02 22:26 07:31 POC Glucose 125 H 132 H 149 H (70-105) 04/23/19 04/23/19 Range/Units 12:54 15:47 POC Glucose 146 H 172 H (70-105)
== END 2019-04-23 16:47 | disposition home or self-care (01) | DRG 69 ==
LOC: ED 10:08 → 4A 12:06
PROVIDERS: ADMIT Internal Medicine; ATTEND Internal Medicine
DX: G45.9 Transient cerebral ischemic attack, unspecified (principal); I69.354 Hemiplegia and hemiparesis following cerebral infarction affecting left non-dominant side; E03.9 Hypothyroidism, unspecified; E78.5 Hyperlipidemia, unspecified; E11.9 Type 2 diabetes mellitus without complications; Z82.49 Family history of ischemic heart disease and other diseases of the circulatory system; Z88.0 Allergy status to penicillin
CPT/HCPCS: 36415; 70450; 70544; 70551; 80048; 80061; 82962; 84484; 85025; 85610; 85670; 85730; 93005; 93010; 93306; 93880; 95819; 96374; G0378; A9270-GY

== ENCOUNTER 2019-07-05 08:21 | Observation (INO) | payer MEDICARE ==
[2019-07-05] MEDS ORDERED: ZOFRAN ORAL LIQ PO ONE (08:58)
[2019-07-05] MEDS ORDERED: PEPCID PO ONE (08:58)
[2019-07-05] MEDS ORDERED: NITROSTAT SL PRN (08:58)
[2019-07-05] MEDS ORDERED: BABY ASPIRIN PO ONE (09:00)
--- NOTE | 2019-07-05 09:00 | Emergency Department Report ---
ED Chest Pain HPI - General Chief Complaint: Chest Pain Stated Complaint: LIGHTHEADED Time Seen by Provider: 07/05/19 08:41 Source: patient, EMS (EMS documentation not available at the time of chart dictation), RN notes reviewed, old records reviewed Mode of arrival: Stretcher Limitations: Physical Limitation - History of Present Illness Initial Comments: This is a 58-year-old female. This patient is not known to this provider previously. She does not have a local primary care doctor. Her past medical history includes stroke, left-sided weakness, left upper extremity contracture, diabetes, hypertension, high cholesterol, medication noncompliance. Patient states that she does not take aspirin on a daily basis. The patient presents to the ER today with complaint of nontraumatic chest pain. The chest pain is central and left-sided removed to the left shoulder. There is positive nausea, diaphoresis. The patient denies fever. Thinks she may have had some lightheadedness, question near syncope, but has not lost consciousness. No abdominal pain. No urinary symptoms. Patient has chronic left-sided ankle pain. She reports that she is in a boot for her left ankle Patient has poor mobility at baseline. MD Complaint: chest pain -: Gradual Onset: during rest Pain Location: substernal, left chest Pain Radiation: LUE Severity: moderate Quality: tightness, aching Consistency: intermittent Improves With: nothing Worsens With: nothing re: nausea, diaphoresis Aspirin use within the Past 7 Days: (0) No - Related Data On Oral Contraceptives: No Home Medications Medication Instructions Recorded Confirmed Last Taken Aspirin 325 mg PO QDAY 04/20/19 04/20/19 Unknown Duloxetine HCl [Cymbalta] 60 mg PO QDAY 04/20/19 04/20/19 Unknown Levothyroxine [Synthroid] 25 mcg PO QAM 04/20/19 04/20/19 Unknown Loratadine [Claritin] 10 mg PO DAILY 04/20/19 04/20/19 Unknown Mirabegron [Myrbetriq] 25 mg PO QDAY 04/20/19 04/20/19 Unknown Naproxen [Naprosyn] 500 mg PO DAILY 04/20/19 04/20/19 Unknown clonazePAM [KlonoPIN] 0.5 mg PO BID PRN 04/20/19 04/20/19 Unknown metFORMIN XR [Glucophage XR] 500 mg PO QDAY 04/20/19 04/20/19 Unknown oxyCODONE /ACETAMINOPHEN [Percocet 1 tab PO BID PRN 04/20/19 04/20/19 Unknown 5/325 mg] traZODone [Desyrel] 50 mg PO QHS 04/20/19 04/20/19 Unknown Previous Rx's Medication Instructions Recorded Last Taken Type AtorvaSTATin [Lipitor] 40 mg PO QHS #30 tablet 04/22/19 Unknown Rx Allergies Allergy/AdvReac Type Severity Reaction Status Date / Time Penicillins Allergy Unknown Verified 04/20/19 10:15 Heart Score - HEART Score History: Moderately suspicious EKG: Non-specific Age: 45-65 Risk factors: > 3 risk factors or hx of atherosclerotic disease Troponin: < normal limit HEART Score: 5 - Critical Actions Critical Actions: 4-6 pts:12-16.6% risk of adverse cardiac event. Should be admitted ED Review of Systems ROS: Stated complaint: LIGHTHEADED Other details as noted in HPI Constitutional: malaise. denies: fever Eyes: denies: eye discharge ENT: denies: epistaxis Respiratory: denies: wheezing Cardiovascular: chest pain, palpitations Gastrointestinal: nausea. denies: abdominal pain Genitourinary: denies: dysuria Musculoskeletal: arthralgia, myalgia Skin: denies: pruritus Neurological: weakness Psychiatric: anxiety ED Past Medical Hx - Past Medical History Previous Medical History?: Yes Hx Hypertension: Yes Hx Congestive Heart Failure: No Hx Diabetes: Yes Hx Seizures: Yes Hx Psychiatric Treatment: Yes (Anxiety) Hx Asthma: No Hx COPD: No Additional medical history: Stroke - Social History Smoking Status: Current Every Day Smoker Substance Use Type: Alcohol - Medications Home Medications: Home Medications Medication Instructions Recorded Confirmed Last Taken Type Aspirin 325 mg PO QDAY 04/20/19 04/20/19 Unknown History Duloxetine HCl [Cymbalta] 60 mg PO QDAY 04/20/19 04/20/19 Unknown History Levothyroxine [Synthroid] 25 mcg PO QAM 04/20/19 04/20/19 Unknown History Loratadine [Claritin] 10 mg PO DAILY 04/20/19 04/20/19 Unknown History Mirabegron [Myrbetriq] 25 mg PO QDAY 04/20/19 04/20/19 Unknown History Naproxen [Naprosyn] 500 mg PO DAILY 04/20/19 04/20/19 Unknown History clonazePAM [KlonoPIN] 0.5 mg PO BID PRN 04/20/19 04/20/19 Unknown History metFORMIN XR [Glucophage XR] 500 mg PO QDAY 04/20/19 04/20/19 Unknown History oxyCODONE /ACETAMINOPHEN [Percocet 1 tab PO BID PRN 04/20/19 04/20/19 Unknown History 5/325 mg] traZODone [Desyrel] 50 mg PO QHS 04/20/19 04/20/19 Unknown History AtorvaSTATin [Lipitor] 40 mg PO QHS #30 tablet 04/22/19 Unknown Rx ED Physical Exam - General Limitations: Physical Limitation General appearance: alert, anxious - Head Head exam: Present: atraumatic, normocephalic - Eye Eye exam: Present: normal appearance, EOMI. Absent: nystagmus - ENT ENT exam: Present: normal exam, normal orophraynx, mucous membranes moist, normal external ear exam - Neck Neck exam: Present: normal inspection, full ROM. Absent: tenderness, meningismus - Respiratory Respiratory exam: Present: normal lung sounds bilaterally. Absent: respiratory distress - Cardiovascular Cardiovascular Exam: Present: regular rate, normal rhythm, normal heart sounds. Absent: bradycardia, tachycardia, irregular rhythm, systolic murmur, diastolic murmur, rubs, gallop - GI/Abdominal GI/Abdominal exam: Present: soft. Absent: distended, tenderness, guarding, pulsatile mass - Extremities Exam Extremities exam: Present: other (2+ pulses noted in the bilateral upper, lower extremities. There is no long bony tenderness. The pelvis is stable. Muscular compartments are soft.). Absent: tenderness - Back Exam Back exam: Present: normal inspection. Absent: tenderness, CVA tenderness (R), CVA tenderness (L), paraspinal tenderness, vertebral tenderness - Neurological Exam Neurological exam: Present: alert, motor sensory deficit (there is colonic weakness left arm, left leg. There is decreased sensation to light touch left arm, left leg. There is no facial droop. The tongue is midline. Extraocular movements are intact bilaterally. Live/5 strength right arm, right leg.) - Psychiatric Psychiatric exam: Present: anxious - Skin Skin exam: Present: warm ED Course Vital Signs 07/05/19 07/05/19 07/05/19 08:30 08:31 08:45 Temperature 98.8 F Pulse Rate 61 Respiratory 16 Rate Blood Pressure 140/68 140/68 140/68 O2 Sat by Pulse 100 100 100 Oximetry 07/05/19 07/05/19 07/05/19 08:57 09:00 09:15 Temperature 98.8 F Pulse Rate 61 Respiratory 16 Rate Blood Pressure 136/61 136/61 O2 Sat by Pulse 100 97 100 Oximetry 07/05/19 07/05/19 07/05/19 09:31 10:01 10:15 Temperature Pulse Rate 61 Respiratory 17 17 16 Rate Blood Pressure 116/46 139/49 116/46 O2 Sat by Pulse 100 100 96 Oximetry 07/05/19 07/05/19 07/05/19 11:01 12:01 13:00 Temperature Pulse Rate Respiratory 15 17 14 Rate Blood Pressure 131/62 126/63 128/71 O2 Sat by Pulse 100 99 96 Oximetry - Reevaluation(s) Reevaluation #1: 07/05/19 10:03 Differential diagnosis, including not limited to: GERD, gastritis, hiatal hernia, pneumonia, acute coronary syndrome, anxiety, conversion disorder, pulmonary embolism Assessment and plan: 58-year-old female, with poor baseline mobility, unchanged EKG from prior, not tachycardic, not hypoxic, with chest pain. The patient appears anxious but comfortable. She is not diaphoretic or vomiting in the ER. Troponin negative 1. Low risk by well's criteria for pulmonary embolism, however, does have risk factors for thromboembolic disease, therefore, d-dimer sense to risk stratify patient for pulmonary embolus. We have ordered medications to treat her symptoms. We have recommended admission for cardiac risk stratification, given heart score. Discussed this with the patient, who verbalized understanding. Hospital physician, Dr. Alona Schmitt to admit d dimer pending at this time Reevaluation #2: 07/05/19 13:51 CT angiogram chest is negative for acute disease. MERLIN score - Merlin Score Age > 65: (0) No Aspirin use within the Past 7 Days: (0) No 3 or more CAD Risk Factors: (1) Yes 2 or more Angina events in past 24 hrs: (1) Yes Known CAD with more than 50% Stenosis: (0) No Elevated Cardiac Markers: (0) No ST Deviation Greater than 0.5mm: (0) No MERLIN Score: 2 ED Medical Decision Making - Lab Data Result diagrams: 07/05/19 08:40 07/05/19 08:40 Vital Signs 07/05/19 07/05/19 08:30 08:57 Temperature 98.8 F 98.8 F Pulse Rate 61 61 Respiratory 16 16 Rate Blood Pressure 140/68 O2 Sat by Pulse 100 100 Oximetry Lab Results 07/05/19 07/05/19 07/05/19 Range/Units 08:40 08:40 08:40 WBC 10.4 (4.5-11.0) K/mm3 RBC 4.47 (3.65-5.03) M/mm3 Hgb 14.3 (10.1-14.3) gm/dl Hct 42.0 (30.3-42.9) % MCV 94 (79-97) fl MCH 32 (28-32) pg MCHC 34 (30-34) % RDW 14.0 (13.2-15.2) % Plt Count 291 (140-440) K/mm3 Lymph % (Auto) 26.5 (13.4-35.0) % [place] % (Auto) 8.4 H (0.0-7.3) % Eos % (Auto) 1.5 (0.0-4.3) % Baso % (Auto) 0.7 (0.0-1.8) % Lymph # 2.8 (1.2-5.4) K/mm3 [place] # 0.9 H (0.0-0.8) K/mm3 Eos # 0.2 (0.0-0.4) K/mm3 Baso # 0.1 (0.0-0.1) K/mm3 Seg Neutrophils % 62.9 (40.0-70.0) % Seg Neutrophils # 6.5 (1.8-7.7) K/mm3 Sodium 142 (137-145) mmol/L Potassium 3.9 (3.6-5.0) mmol/L Chloride 101.1 (98-107) mmol/L Carbon Dioxide 28 (22-30) mmol/L Anion Gap 17 mmol/L BUN 9 (7-17) mg/dL Creatinine 0.7 (0.7-1.2) mg/dL Estimated GFR > 60 ml/min BUN/Creatinine Ratio 13 % Glucose 156 H (65-100) mg/dL Calcium 9.8 (8.4-10.2) mg/dL Magnesium 2.00 (1.7-2.3) mg/dL Total Creatine Kinase 98 (30-135) units/L Troponin T < 0.010 (0.00-0.029) ng/mL - EKG Data -: EKG Interpreted by Me EKG shows normal: sinus rhythm Rate: normal - EKG Data When compared to previous EKG there are: no significant change 07/05/19 10:02 EKG shows a sinus rhythm, 60 bpm, normal axis, QTC prolonged, left axis deviation, left anterior fascicular block, incomplete right bundle-branch block, motion artifact, EKG is abnormal, the EKG is not consistent with ST elevation myocardial infarction, the EKG is unchanged from prior EKG from April 2019. - Radiology Data Radiology results: report reviewed, image reviewed X-ray of the chest is interpreted as negative for acute disease Critical care attestation.: If time is entered above; I have spent that time in minutes in the direct care of this critically ill patient, excluding procedure time. ED Disposition Clinical Impression: Left hemiparesis, Acute chest pain, Non compliance w medication regimen Disposition: OP ADMIT IP TO THIS HOSP Is pt being admited?: Yes Does the pt Need Aspirin: Yes Condition: Good
[2019-07-05 09:02] LABS: Basophils # (Auto) 0.1 K/mm3 (0.0-0.1); Basophils % (Auto) 0.7 % (0.0-1.8); Eosinophils # (Auto) 0.2 K/mm3 (0.0-0.4); Eosinophils % (Auto) 1.5 % (0.0-4.3); Hemoglobin 14.3 gm/dl (10.1-14.3); Lymphocytes # (Auto) 2.8 K/mm3 (1.2-5.4); Lymphocytes % (Auto) 26.5 % (13.4-35.0); Mean Corpuscular HGB Conc 34 % (30-34); Mean Corpuscular Volume 94 fl (79-97); Monocytes # (Auto) 0.9 K/mm3 (0.0-0.8); Monocytes % (Auto) 8.4 % (0.0-7.3); Platelet Count 291 K/mm3 (140-440); Red Blood Count 4.47 M/mm3 (3.65-5.03)
[2019-07-05 09:17] LABS: BUN/Creatinine Ratio 13; Blood Urea Nitrogen 9 mg/dL (7-17); Calcium 9.8 mg/dL (8.4-10.2); Hemolysis Index 8
--- NOTE | 2019-07-05 09:27 | XRay Report ---
CHEST 1 VIEW INDICATION: Chest Pain. COMPARISON: None FINDINGS: Support devices: None. Heart: Within normal limits. Lungs/Pleura: No acute air space or interstitial disease. Additional findings: None. IMPRESSION: 1. No acute findings. Signer Name: Florentin Pablo MD Signed: 07/05/2019 9:22 AM Workstation Name: [id number]
[2019-07-05 10:08] LABS: INR 0.93 (0.87-1.13)
[2019-07-05 10:09] LABS: Partial Thromboplastin Time 27.3 Sec. (24.2-36.6)
[2019-07-05] MEDS ORDERED: IBUPROFEN PO ONE ×2 (10:51→10:53)
--- NOTE | 2019-07-05 11:22 | History and Physical Report ---
History of Present Illness Date of examination: 07/05/19 Date of admission: 07/05/19 Chief complaint: Chest pain History of present illness: 58 YO Female with HTN, HLD, CVA with left-sided weakness and left upper extremity contracture, Hypothyroidism, DM presents to ED for evaluation of chest pain which started around 7am today. The chest pain is central and left-sided radiates to the left shoulder along with nausea, diaphoresis. The patient denies fever. In the ER CE normal, EKG shows no acute ST changes. Pt will be admitted to telemetry and initiated on chest pain protocol. Past History Past Medical History: hypertension, hyperlipidemia, hypothyroidism, stroke, other (Depression) Past Surgical History: No surgical history, Other (reviewed) Social history: single. denies: smoking, alcohol abuse Family history: hypertension Review of System: Constitutional: no fever, no chills, no weight loss Ears, eyes, nose, mouth and throat: no nasal congestion, no nasal discharge, no sinus pressure, no vision change, no red eye. Neck: No neck pain or rigidity. Cardiovascular: + chest pain, no orthopnea, no palpitations, no leg swelling Respiratory: No shortness of breath, no cough, no congestion, no wheezing Gastrointestinal: no abdominal pain, + nausea, no vomiting Genitourinary : no dysuria, no hematuria Musculoskeletal: no joint swelling or muscle ache Integumentary: no rash, no pruritis Neurological: no parathesias, no numbness, no tingling Endocrine: no cold or heat intolerance, no polyuria or polydipsia Hematologic/Lymphatic: no easy bruising, no easy bleeding, no gland swelling Allergic/Immunologic: no urticaria, no angioedema. Past History Past Medical History: other (stroke, left-sided weakness, left upper extremity contracture, diabetes, hypertension, high cholesterol, medication noncompliance.) Past Surgical History: No surgical history Social history: denies: smoking, alcohol abuse Family history: hypertension Medications and Allergies Allergies Allergy/AdvReac Type Severity Reaction Status Date / Time Penicillins Allergy Unknown Verified 04/20/19 10:15 Home Medications Medication Instructions Recorded Confirmed Last Taken Type Aspirin 325 mg PO QDAY 04/20/19 07/05/19 Unknown History Duloxetine HCl [Cymbalta] 60 mg PO QDAY 04/20/19 07/05/19 Unknown History Levothyroxine [Synthroid] 25 mcg PO QAM 04/20/19 07/05/19 Unknown History Loratadine [Claritin] 10 mg PO DAILY 04/20/19 07/05/19 Unknown History Mirabegron [Myrbetriq] 25 mg PO QDAY 04/20/19 07/05/19 Unknown History Naproxen [Naprosyn] 500 mg PO DAILY 04/20/19 07/05/19 Unknown History clonazePAM [KlonoPIN] 0.5 mg PO BID PRN 04/20/19 07/05/19 Unknown History metFORMIN XR [Glucophage XR] 500 mg PO QDAY 04/20/19 07/05/19 Unknown History oxyCODONE /ACETAMINOPHEN [Percocet 1 tab PO BID PRN 04/20/19 07/05/19 Unknown History 5/325 mg] traZODone [Desyrel] 50 mg PO QHS 04/20/19 07/05/19 Unknown History AtorvaSTATin [Lipitor] 40 mg PO QHS #30 tablet 04/22/19 07/05/19 Unknown Rx Active Meds: Active Medications Nitroglycerin (Nitrostat) 0.4 mg SL .Q5MIN PRN PRN Reason: Chest Pain Exam - Physical Exam Narrative exam: GENERAL: well-developed and well-nourished WF lying on bed appeared to be in no discomfort. HEENT: Normocephalic. Atraumatic. No conjunctival congestion or icterus. Patie nt has moist mucous membranes. NECK: Supple. Trachea midline. CHEST/LUNGS: Clear to auscultated bilaterally, breathing nonlabored. No wheezes crackles or rhonchi. HEART/CARDIOVASCULAR: Regular in rate and rhythm. S1 and S2 positive. ABDOMEN: Abdomen is soft, nontender. Patient has normal bowel sounds. SKIN: There is no rash. Warm and dry. NEURO: left sided weakness. Follows command. MUSCULOSKELETAL: No joint effusion or tenderness. EXTRIMITY: No edema, no cyanosis or clubbing. PSYCH: Cooperative. - Constitutional Vitals: Temp Pulse Resp BP Pulse Ox 98.8 F 61 16 116/46 96 07/05/19 08:57 07/05/19 09:31 07/05/19 10:15 07/05/19 10:15 07/05/19 10:15 Results - Labs CBC & Chem 7: 07/05/19 08:40 07/05/19 08:40 Labs: Abnormal lab results 07/05/19 07/05/19 07/05/19 Range/Units 08:40 08:40 08:40 [place] % (Auto) 8.4 H (0.0-7.3) % [place] # 0.9 H (0.0-0.8) K/mm3 D-Dimer 336.01 H (0-234) ng/mlDDU Glucose 156 H (65-100) mg/dL Assessment and Plan Acute chest pain - need to rule out ACS, CTA negative for PE/aortic dissection - - will admit to telemetry bed - monitor with serial CE and EKG - will place on Aspirin, statin - as needed SL NTG and iv morphin for pain - Monitor BP, add betablocker and ACEI if BP tolerates - order stress test in the am, 2d echo 2 months ago showed preserved Ef - cardiac diet now, NPO after midnight - provide DVT Px with lovenox Other chronic issues History of CVA with left-sided weakness Hypertension, hyperlipidemia, hypothyroidism Medication noncompliance - Continue home meds, supportive care
--- NOTE | 2019-07-05 13:49 | Cat Scan Report ---
CTA of the chest with 3D Reconstruction Indication: ,cp near syncope Technique: TECHNIQUE: Axial CT images were obtained through the chest after injection of Omnipaque [address] 3 plane MIP reconstructions were produced. All CT scans at this location are performed using CT d ose reduction for ALARA by means of automated exposure control. COMPARISON: None Automatic exposure control was utilized in an attempt to reduce radiation dose. Findings: Pulmonary arteries: The main pulmonary artery and right and left pulmonary artery branches fill satis factorily with contrast. No pulmonary embolus is seen. Lungs: The lungs are clear. Mediastinum: Heart size is normal. No adenopathy is seen. Aorta: Normal in diameter. No dissection seen within limits of this exam. Impression: No pulmonary embolus is seen Signer Name: Bimal Troncoso MD Signed: 07/05/2019 1:45 PM Workstation Name: [id number]
[2019-07-06] MEDS ORDERED: LEXISCAN IV ONE ×2 (06:54→06:59)
[2019-07-06] MEDS ORDERED: HALFPRIN EC PO SCH (10:00)
[2019-07-06] MEDS ORDERED: PERCOCET 5/325 PO PRN (11:13)
--- NOTE | 2019-07-06 13:11 | Treadmill Report ---
THALLIUM STRESS TEST LEFT VENTRICLE: Left ventricular chamber size is within normal spread. Perfusion study demonstrates normal apical thinning, otherwise homogeneous uptake of the tracer in all segments, no significant defects identified. Gated analysis demonstrates normal left ventricular systolic function, ejection fraction 67%. CONCLUSION: Normal myocardial perfusion study. JOB# [id number] CA/NTS
--- NOTE | 2019-07-06 15:30 | Discharge Summary ---
Providers - Providers Date of Admission: 07/05/19 10:05 Date of discharge: 07/06/19 Attending physician: NEDA LOUISE Primary care physician: BANKING SERVICES CLERK Hospitalization Condition: Good Pertinent studies: CXR, CTA chest, MPI stress test Hospital course: 58 YO Female with HTN, HLD, CVA with left-sided weakness and left upper extremity contracture, Hypothyroidism, DM presents to ED for evaluation of chest pain which started around 7am in the morning. In the ER CE normal, EKG showed no acute ST changes. CTA chest showed no PE. MPI stress test was normal. Patient was placed on PPI and discharged home in stable condition. Discharge diagnosis: Acute chest pain, ruled out ACS, CTA negative for PE/aortic dissection, stress test was normal - 2d echo 2 months ago showed preserved Ef - Likely from GERD, given PPI on d/c Other chronic issues History of CVA with left-sided weakness Hypertension, hyperlipidemia, hypothyroidism Medication noncompliance - Continue home meds, counseled for compliance Disposition: DC-01 TO HOME OR SELFCARE Time spent for discharge: 34 minutes Core Measure Documentation - Palliative Care Palliative Care/ Comfort Measures: Not Applicable - Core Measures Any of the following diagnoses?: history only Exam - Physical Exam Narrative exam: GENERAL: well-developed and well-nourished WF lying on bed appeared to be in no discomfort. HEENT: Normocephalic. Atraumatic. No conjunctival congestion or icterus. Patient has moist mucous membranes. NECK: Supple. Trachea midline. CHEST/LUNGS: Clear to auscultated bilaterally, breathing nonlabored. No wheezes crackles or rhonchi. HEART/CARDIOVASCULAR: Regular in rate and rhythm. S1 and S2 positive. ABDOMEN: Abdomen is soft, nontender. Patient has normal bowel sounds. SKIN: There is no rash. Warm and dry. NEURO: left sided weakness. Follows command. MUSCULOSKELETAL: No joint effusion or tenderness. EXTRIMITY: No edema, no cyanosis or clubbing. PSYCH: Cooperative. - Constitutional Vitals: Temp Pulse Resp BP Pulse Ox 98.4 F 67 19 145/57 98 07/06/19 11:48 07/06/19 13:08 07/06/19 13:08 07/06/19 11:48 07/06/19 13:08 Plan Activity: up only with assistance, fall precautions Weight Bearing Status: Non-Weight Bearing Diet: low fat, low salt Special Instructions: record daily BP diary, record blood sugar diary, follow up in rehab (outpt) Follow up with: PRIMARY CARE, [Primary Care Provider] - 3-5 Days Prescriptions: AtorvaSTATin [Lipitor] 40 mg PO QHS #30 tablet Aspirin EC [Halfprin EC] 81 mg PO QDAY #30 tablet Pantoprazole [Protonix] 40 mg PO QDAY #30 tablet
[2019-07-06 17:45] VITALS: BP 131/53
[2019-07-06] MEDS ORDERED: DESYREL PO SCH (22:00)
[2019-07-07] MEDS ORDERED: SYNTHROID PO SCH (06:00)
[2019-07-07] MEDS ORDERED: NON-FORMULARY (Duloxetine Hcl [Cymbalta] 60 MG) PO SCH (10:00)
[2019-07-07] MEDS ORDERED: GLUCOPHAGE XR PO SCH (10:00)
[2019-07-07] MEDS ORDERED: CYMBALTA PO SCH (10:00)
[2019-07-07] MEDS ORDERED: CLARITIN PO SCH (10:00)
[2019-07-07] MEDS ORDERED: NON-FORMULARY (Mirabegron [Myrbetriq] 25 MG) PO SCH (10:00)
[2019-07-07] MEDS ORDERED: NAPROSYN PO SCH (10:00)
== END 2019-07-06 19:02 | disposition home or self-care (01) ==
LOC: ED 08:21 → 4A 10:05
PROVIDERS: ADMIT Internal Medicine; ATTEND Internal Medicine
DX: R07.89 Other chest pain (principal); I10 Essential (primary) hypertension; E78.5 Hyperlipidemia, unspecified; E03.9 Hypothyroidism, unspecified; F17.200 Nicotine dependence, unspecified, uncomplicated; Z91.14 Patient's other noncompliance with medication regimen; Z86.73 Personal history of transient ischemic attack (TIA), and cerebral infarction without residual deficits; Z79.82 Long term (current) use of aspirin; Z79.84 Long term (current) use of oral hypoglycemic drugs
CPT/HCPCS: 36415; 71045; 71275; 78452; 80048; 82550; 83735; 84484; 85025; 85379; 85610; 85730; 87116; 93005; 93010; 93017; 99284; A9502; G0378; J2785; Q0162; Q9967; A9270-GY

== ENCOUNTER 2019-07-06 21:41 | Emergency (ER) | payer MEDICARE ==
--- NOTE | 2019-07-06 21:58 | Event Note ---
ED Screening Note Date of service: 07/06/19 Time: 21:55 ED Screening Note: 58 y o female presents with dental pain, states broke her tooth , pain radiating upwards This initial assessment/diagnostic orders/clinical plan/treatment(s) is/are subject to change based on patients health status, clinical progression and re- assessment by fellow clinical providers in the ED. Further treatment and workup at subsequent clinical providers discretion. Patient/guardian urged not to elope from the ED as their condition may be serious if not clinically assessed and managed. Initial orders include:
--- NOTE | 2019-07-06 23:49 | Emergency Department Report ---
ED Back Pain/Injury HPI - General Chief Complaint: Dental/Oral Stated Complaint: TOOTHACHE Time Seen by Provider: 07/06/19 21:55 Source: patient Limitations: No Limitations - History of Present Illness Initial Comments: 58 YO COMES TO ER WITH 2H HX OF DENTAL PAIN LEFT MAXILLARY TOOTH 14-16 NO ABSCESS ABC INTACT VSS - Related Data Home Medications Medication Instructions Recorded Confirmed Last Taken Duloxetine HCl [Cymbalta] 60 mg PO QDAY 04/20/19 07/05/19 Unknown Levothyroxine [Synthroid] 25 mcg PO QAM 04/20/19 07/05/19 Unknown Loratadine [Claritin] 10 mg PO DAILY 04/20/19 07/05/19 Unknown Mirabegron [Myrbetriq] 25 mg PO QDAY 04/20/19 07/05/19 Unknown clonazePAM [KlonoPIN] 0.5 mg PO BID PRN 04/20/19 07/05/19 Unknown metFORMIN XR [Glucophage XR] 500 mg PO QDAY 04/20/19 07/05/19 Unknown traZODone [Desyrel] 50 mg PO QHS 04/20/19 07/05/19 Unknown Previous Rx's Medication Instructions Recorded Last Taken Type Aspirin EC [Halfprin EC] 81 mg PO QDAY #30 tablet 07/06/19 Unknown Rx AtorvaSTATin [Lipitor] 40 mg PO QHS #30 tablet 07/06/19 Unknown Rx Pantoprazole [Protonix] 40 mg PO QDAY #30 tablet 07/06/19 Unknown Rx Clindamycin [Clindamycin CAP] 150 mg PO Q8HR #30 capsule 07/07/19 Unknown Rx Naproxen [Naprosyn] 500 mg PO BID PRN #20 tablet 07/07/19 Unknown Rx Allergies Allergy/AdvReac Type Severity Reaction Status Date / Time Penicillins Allergy Unknown Verified 04/20/19 10:15 ED Review of Systems ROS: Stated complaint: TOOTHACHE Other details as noted in HPI Comment: All other systems reviewed and negative ED Past Medical Hx - Past Medical History Medical history: diabetes Stroke- ANXIETY, HPLD, GERD ED Back Pain Physical Exam - Exam General: Vital signs noted. No distress. Alert and acting appropriately. Back/Abdomen: No Abdominal Tenderness, No Perithoracic Tenderness, No Perilumbar Tenderness, No Sacroiliac Tenderness, No Flank Tenderness, No Straight Leg Raise Pain Neuro: Yes Normal Sensation, Yes Normal DTR's, Yes Normal Gait, No Motor Weakness ED Course Vital Signs 07/06/19 21:52 Temperature 98.3 F Pulse Rate 70 Respiratory 16 Rate Blood Pressure 147/76 O2 Sat by Pulse 99 Oximetry ED Medical Decision Making - Medical Decision Making VSS ABC INTACT NO LUDWIGS NO ABSCESS TAKING PO NO FEVER OR CHILLS HAS NOT SEEN DMD IN YEARS EDUCATED ON DENTAL CARE DC HOME WITH FOLLOW UP INSTRUCTIONS. Vital Signs 07/06/19 21:52 Temperature 98.3 F Pulse Rate 70 Respiratory 16 Rate Blood Pressure 147/76 O2 Sat by Pulse 99 Oximetry - Differential Diagnosis SIMPLE DENTAL Critical care attestation.: If time is entered above; I have spent that time in minutes in the direct care of this critically ill patient, excluding procedure time. ED Disposition Clinical Impression: Pain, dental Disposition: DC-01 TO HOME OR SELFCARE Is pt being admited?: No Does the pt Need Aspirin: No Condition: Stable Referrals: [facility] [Outside] - 3-5 Days [facility] [Outside] - 3-5 Days Time of Disposition: 00:21
[2019-07-07] MEDS ORDERED: IBUPROFEN PO ONE (00:21)
[2019-07-07 01:20] VITALS: BP 145/70
== END 2019-07-07 01:19 | disposition home or self-care (01) ==
LOC: ED 21:41
DX: K08.89 Other specified disorders of teeth and supporting structures (principal); E11.9 Type 2 diabetes mellitus without complications; F41.9 Anxiety disorder, unspecified; E78.5 Hyperlipidemia, unspecified; K21.9 Gastro-esophageal reflux disease without esophagitis; Z79.899 Other long term (current) drug therapy; Z86.73 Personal history of transient ischemic attack (TIA), and cerebral infarction without residual deficits; Z79.82 Long term (current) use of aspirin; Z88.0 Allergy status to penicillin

== ENCOUNTER 2020-12-23 15:11 | Emergency (ER) | payer MEDICARE ==
[2020-12-23 16:19] VITALS: BP 128/45
[2020-12-23] MEDS ORDERED: HYDROcodone/ACETAMINOPHEN 5-325 MG TAB PO ONE (16:35)
[2020-12-23] MEDS ORDERED: ONDANSETRON 4 MG ODT TAB PO ONE (16:35)
[2020-12-23] MEDS ORDERED: IBUPROFEN 800 MG TAB PO ONE (16:35)
[2020-12-23] MEDS ORDERED: HYDROCORTISONE 1% CREAM 28.4GM TP ONE (16:39)
--- NOTE | 2020-12-23 17:05 | Emergency Department Report ---
ED Fall HPI - General Chief Complaint: Fall Stated Complaint: FELL, HIT & HIT HEAD Time Seen by Provider: 12/23/20 16:17 Source: patient, EMS Mode of arrival: Stretcher Limitations: No Limitations - History of Present Illness Initial Comments: Chief complaint: "I fell. But I am really worried about my rash." HPI: This is a 60-year-old female with history of CVA with left hemiparesis, hyperlipidemia, hypertension, diabetes mellitus, hypothyroidism who presents with fall. Patient states that she fell backwards from a chair in the kitchen. She had her phone nearby. She called 911. Patient left hip pain. She also has pain in the back of her head. She denies neck pain. He arrived via EMS. She has had a rash on her lower legs for the past month. No new medications. She does not have a primary care physician. However she is followed at the [facility]. Medicines that she can recall include trazodone Metformin. She has treated the rash with antibiotic ointment without relief. Left hip pain is mild. She has limited movement in the left hip due to hemiparesis. 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 Place Fall Occurred: home Loss of Consciousness: none Prolonged Down Time?: no Symptoms Prior to Fall: none Location: head, other (Left hip) Severity: mild Quality: dull Context: tripped/slipped Associated Symptoms: other (1 month rash) - Related Data Home Medications Medication Instructions Recorded Confirmed Last Taken Duloxetine HCl [Cymbalta] 60 mg PO QDAY 04/20/19 07/05/19 Unknown Levothyroxine [Synthroid] 25 mcg PO QAM 04/20/19 07/05/19 Unknown Loratadine (Nf) [Claritin (Nf)] 10 mg PO DAILY 04/20/19 07/05/19 Unknown Mirabegron [Myrbetriq] 25 mg PO QDAY 04/20/19 07/05/19 Unknown clonazePAM [KlonoPIN] 0.5 mg PO BID PRN 04/20/19 07/05/19 Unknown metFORMIN XR [Glucophage XR] 500 mg PO QDAY 04/20/19 07/05/19 Unknown traZODone [Desyrel] 50 mg PO QHS 04/20/19 07/05/19 Unknown Previous Rx's Medication Instructions Recorded Last Taken Type Aspirin EC [Halfprin EC] 81 mg PO QDAY #30 tablet 07/06/19 Unknown Rx AtorvaSTATin [Lipitor] 40 mg PO QHS #30 tablet 07/06/19 Unknown Rx Pantoprazole [Protonix] 40 mg PO QDAY #30 tablet 07/06/19 Unknown Rx Clindamycin [Clindamycin CAP] 150 mg PO Q8HR #30 capsule 07/07/19 Unknown Rx Naproxen [Naprosyn] 500 mg PO BID PRN #20 tablet 07/07/19 Unknown Rx Allergies Allergy/AdvReac Type Severity Reaction Status Date / Time Penicillins Allergy Unknown Verified 04/20/19 10:15 ED Review of Systems ROS: Stated complaint: FELL, HIT & HIT HEAD Other details as noted in HPI Comment: All other systems reviewed and negative Constitutional: denies: fever, malaise Respiratory: denies: cough, shortness of breath Gastrointestinal: denies: abdominal pain Skin: rash Neurological: headache ED Past Medical Hx - Past Medical History Previous Medical History?: Yes Hx Hypertension: Yes Hx CVA: Yes Hx Congestive Heart Failure: No Hx Diabetes: Yes (pre-diabetic) Hx Seizures: Yes (secondary to stroke) Hx Psychiatric Treatment: Yes (Anxiety) Hx Asthma: No Hx COPD: No Additional medical history: Stroke- ANXIETY, HPLD, GERD - Surgical History Past Surgical History?: Yes Additional Surgical History: left ankle sx, tonsils removed - Social History Smoking Status: Current Some Day Smoker Substance Use Type: Alcohol - Medications Home Medications: Home Medications Medication Instructions Recorded Confirmed Last Taken Type Duloxetine HCl [Cymbalta] 60 mg PO QDAY 04/20/19 07/05/19 Unknown History Levothyroxine [Synthroid] 25 mcg PO QAM 04/20/19 07/05/19 Unknown History Loratadine (Nf) [Claritin (Nf)] 10 mg PO DAILY 04/20/19 07/05/19 Unknown History Mirabegron [Myrbetriq] 25 mg PO QDAY 04/20/19 07/05/19 Unknown History clonazePAM [KlonoPIN] 0.5 mg PO BID PRN 04/20/19 07/05/19 Unknown History metFORMIN XR [Glucophage XR] 500 mg PO QDAY 04/20/19 07/05/19 Unknown History traZODone [Desyrel] 50 mg PO QHS 04/20/19 07/05/19 Unknown History Aspirin EC [Halfprin EC] 81 mg PO QDAY #30 tablet 07/06/19 Unknown Rx AtorvaSTATin [Lipitor] 40 mg PO QHS #30 tablet 07/06/19 Unknown Rx Pantoprazole [Protonix] 40 mg PO QDAY #30 tablet 07/06/19 Unknown Rx Clindamycin [Clindamycin CAP] 150 mg PO Q8HR #30 capsule 07/07/19 Unknown Rx Naproxen [Naprosyn] 500 mg PO BID PRN #20 tablet 07/07/19 Unknown Rx ED Physical Exam - General Limitations: Physical Limitation General appearance: alert, in no apparent distress, other (GCS 15, moves neck and head fluidly) - Head Head exam: Present: atraumatic, normocephalic - Eye Eye exam: Present: normal appearance - ENT ENT exam: Present: mucous membranes moist - Neck Neck exam: Present: normal inspection, full ROM. Absent: tenderness, meningismus - Respiratory Respiratory exam: Present: normal lung sounds bilaterally. Absent: respiratory distress, wheezes, rales, rhonchi - Cardiovascular Cardiovascular Exam: Present: regular rate, normal rhythm, normal heart sounds. Absent: systolic murmur, diastolic murmur, rubs, gallop - GI/Abdominal GI/Abdominal exam: Present: soft, normal bowel sounds. Absent: distended, tenderness, guarding, rebound - Expanded Lower Extremity Exam Left Hip exam: Present: normal inspection, full ROM (Passive range of motion no pain deformity crepitus). Absent: tenderness, swelling, abrasion Upper Leg exam: Present: normal inspection, full ROM (Passive range of motion no pain no deformity). Absent: tenderness, swelling Knee exam: Present: normal inspection, full ROM (Passive range of motion no pain or deformity) Lower Leg exam: Present: normal inspection Ankle exam: Present: normal inspection Foot/Toe exam: Present: normal inspection Neuro vascular tendon exam: Present: no vascular compromise - Back Exam Back exam: Present: normal inspection - Neurological Exam Neurological exam: Present: alert, oriented X3 - Psychiatric Psychiatric exam: Present: normal affect, normal mood - Skin Skin exam: Present: warm, rash (Both lower legs pretibial region: Irritated skin red small lesions 5 mm to 7 mm in length appearance of small ulcers) ED Course Vital Signs 12/23/20 12/23/20 16:13 16:19 Temperature 98.5 F 98.5 F Pulse Rate 52 L 52 L Respiratory 18 18 Rate Blood Pressure 128/45 Blood Pressure 128/45 [Right] O2 Sat by Pulse 99 98 Oximetry ED Medical Decision Making - Radiology Data Radiology results: report reviewed LEFT HIP 3 VIEW(S) INDICATION / CLINICAL INFORMATION: left hip after fall COMPARISON: None available. FINDINGS: BONES / JOINT(S): No acute fracture or subluxation. No significant arthritis. SOFT TISSUES: No significant abnormality. ADDITIONAL FINDINGS: None. - Medical Decision Making One. Fall with head trauma, CT imaging not indicated in this scenario. Patient has normal mental status. No amnesia. No LOC. No vomiting. Mild headache. Patient denies any neck pain. 2. Lower extremity ulcerative rash differential diagnosis includes vasculitis, drug reaction, food allergy, ulcers due to venous stasis, I have prescribed hydrocortisone cream. Patient was given tube of hydrocortisone cream. Patient lives at home alone. She has limited social support. Critical care attestation.: If time is entered above; I have spent that time in minutes in the direct care of this critically ill patient, excluding procedure time. ED Disposition Clinical Impression: Fall, Strain of left hip, Rash and nonspecific skin eruption, Closed head injury Disposition: - TO HOME OR SELFCARE Is pt being admited?: No Does the pt Need Aspirin: No Condition: Stable Instructions: Rash, Adult, [id number] Referrals: GIANFRANCO ZULETA MD [Staff Physician] - 3-5 Days
--- NOTE | 2020-12-23 17:20 | XRay Report ---
LEFT HIP 3 VIEW(S) INDICATION / CLINICAL INFORMATION: left hip after fall COMPARISON: None available. FINDINGS: BONES / JOINT(S): No acute fracture or subluxation. No significant arthritis. SOFT TISSUES: No significant abnormality. ADDITIONAL FINDINGS: None. Signer Name: Diego Braxton MD Signed: 12/23/2020 5:16 PM Workstation Name: [id number]
== END 2020-12-23 19:37 | disposition home or self-care (01) ==
LOC: ED 15:11
DX: S76.012A Strain of muscle, fascia and tendon of left hip, initial encounter (principal); S09.90XA Unspecified injury of head, initial encounter; R21 Rash and other nonspecific skin eruption; I10 Essential (primary) hypertension; E11.9 Type 2 diabetes mellitus without complications; F41.9 Anxiety disorder, unspecified; F17.200 Nicotine dependence, unspecified, uncomplicated; Z98.890 Other specified postprocedural states; Z88.0 Allergy status to penicillin; Z86.73 Personal history of transient ischemic attack (TIA), and cerebral infarction without residual deficits; Z79.899 Other long term (current) drug therapy; W22.8XXA Striking against or struck by other objects, initial encounter; Y93.89 Activity, other specified; Y92.009 Unspecified place in unspecified non-institutional (private) residence as the place of occurrence of the external cause; Y99.8 Other external cause status
CPT/HCPCS: 73502; 99284; A6250; Q0162

== ENCOUNTER 2021-10-29 17:21 | Emergency (ER) | payer MEDICARE ==
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
[2021-10-29 20:14] LABS: Basophils % (Auto) 0.5 % (0.0-1.8); Eosinophils % (Auto) 0.4 % (0.0-4.3); Hematocrit 41.8 % (30.3-42.9); Hemoglobin 13.6 gm/dl (10.1-14.3); Lymphocytes # (Auto) 2.1 K/mm3 (1.2-5.4); Lymphocytes % (Auto) 25.3 % (13.4-35.0); Mean Corpuscular HGB Conc 33 % (30-34); Mean Corpuscular Volume 95 fl (79-97); Monocytes # (Auto) 0.5 K/mm3 (0.0-0.8); Monocytes % (Auto) 5.5 % (0.0-7.3); Platelet Count 284 K/mm3 (140-440); Red Blood Count 4.38 M/mm3 (3.65-5.03); Red Cell Distribution Width 14.5 % (13.2-15.2)
[2021-10-29 20:26] LABS: Blood Urea Nitrogen 18 mg/dL (7-17); Calcium 10.7 mg/dL (8.4-10.2); Hemolysis Index 22
[2021-10-29 20:35] LABS: BUN/Creatinine Ratio 30
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
[2021-10-30 14:14] VITALS: BP 124/85
--- NOTE | 2021-10-31 17:30 | Electrocardiograph Report ---
[facility] Test Date: 2021-10-30 Test Time: 05:44:49 Pat Name: CHET MONROY Department: Room: Gender: F Shagger: [employer] : 1960 Requested By: BOBBY CARRERA Order Number: [id number] Reading MD: Jasmyne Emery Measurements Intervals [place] Rate: 75 P: 36 SC: 161 QRS: -7 QRSD: 82 T: 24 QT: 399 QTc: 447 Interpretive Statements Sinus rhythm Poor quality EKG with baseline artifact No previous ECG available for comparison Electronically Signed On 10-31-2021 17:30:00 EST by Jasmyne Emery
== END 2021-10-30 15:03 | disposition home or self-care (01) ==
LOC: ED 17:21
DX: F32.9 Major depressive disorder, single episode, unspecified (principal); I10 Essential (primary) hypertension; Z86.73 Personal history of transient ischemic attack (TIA), and cerebral infarction without residual deficits; E11.8 Type 2 diabetes mellitus with unspecified complications; K21.9 Gastro-esophageal reflux disease without esophagitis; E78.5 Hyperlipidemia, unspecified; F17.200 Nicotine dependence, unspecified, uncomplicated; Z88.0 Allergy status to penicillin; Z98.890 Other specified postprocedural states; Z20.822 Contact with and (suspected) exposure to COVID-19
CPT/HCPCS: 36415; 80048; 85025; 93005; 99284; U0003; 80320; G0480

== ENCOUNTER 2021-10-30 23:41 | Emergency (ER) | payer MEDICARE ==
[2021-10-31 01:13] VITALS: BP 146/69
--- NOTE | 2021-10-31 01:50 | Emergency Department Report ---
ED General Adult HPI - General Chief complaint: Psych Stated complaint: SI Time Seen by Provider: 10/31/21 01:17 Source: patient Mode of arrival: Ambulatory Limitations: No Limitations - History of Present Illness Initial comments: Patient is 60 years old female with history of hypertension, CVA and depression. Patient discharged from psychiatric area at this afternoon after she has been evaluated for suicidal ideation. Patient was waiting in the lobby for a ride and when the right got delayed patient became upset and she called the police stating that she is suicidal and she is requesting transportation to the custodial. When I examined the patient patient is frustrated however admitted that she said suicidal because she get very upset with the system in [place] and she think the people are lazy and the not doing the job and she wish she can go back to [place]. Patient stated that if she can get a ride she will not think about suicide. Patient denied any visual or auditory hallucination. Patient is medically and psychiatrically stable to be discharged as planned. - Related Data Home Medications Medication Instructions Recorded Confirmed Last Taken Duloxetine HCl [Cymbalta] 60 mg PO QDAY 04/20/19 07/05/19 Unknown Levothyroxine [Synthroid] 25 mcg PO QAM 04/20/19 07/05/19 Unknown Loratadine (Nf) [Claritin (Nf)] 10 mg PO DAILY 04/20/19 07/05/19 Unknown Mirabegron [Myrbetriq] 25 mg PO QDAY 04/20/19 07/05/19 Unknown clonazePAM [KlonoPIN] 0.5 mg PO BID PRN 04/20/19 07/05/19 Unknown metFORMIN XR [Glucophage XR] 500 mg PO QDAY 04/20/19 07/05/19 Unknown traZODone [Desyrel] 50 mg PO QHS 04/20/19 07/05/19 Unknown Previous Rx's Medication Instructions Recorded Last Taken Type Aspirin EC [Halfprin EC] 81 mg PO QDAY #30 tablet 07/06/19 Unknown Rx AtorvaSTATin [Lipitor] 40 mg PO QHS #30 tablet 07/06/19 Unknown Rx Pantoprazole [Protonix] 40 mg PO QDAY #30 tablet 07/06/19 Unknown Rx Clindamycin [Clindamycin CAP] 150 mg PO Q8HR #30 capsule 07/07/19 Unknown Rx Naproxen [Naprosyn] 500 mg PO BID PRN #20 tablet 07/07/19 Unknown Rx ARIPiprazole [Abilify TAB] 5 mg PO DAILY #30 tab 10/30/21 Unknown Rx PARoxetine [Paxil] 20 mg PO DAILY #30 tablet 10/30/21 Unknown Rx Trazodone HCl 150 mg PO QHS #30 tablet 10/30/21 Unknown Rx Allergies Allergy/AdvReac Type Severity Reaction Status Date / Time Penicillins Allergy Unknown Verified 04/20/19 10:15 ED Review of Systems ROS: Stated complaint: SI Other details as noted in HPI Comment: All other systems reviewed and negative Constitutional: denies: chills, fever Respiratory: denies: cough, shortness of breath Cardiovascular: denies: chest pain, palpitations Psychiatric: anxiety. denies: depression, auditory hallucinations, visual hallucinations, homicidal thoughts, suicidal thoughts ED Past Medical Hx - Past Medical History Hx Hypertension: Yes Hx CVA: Yes Hx Congestive Heart Failure: No Hx Diabetes: Yes (pre-diabetic) Hx Seizures: Yes (secondary to stroke) Hx Psychiatric Treatment: Yes (Anxiety) Hx Asthma: No Hx COPD: No Additional medical history: Stroke- ANXIETY, HPLD, GERD - Surgical History Additional Surgical History: left ankle sx, tonsils removed - Social History Smoking Status: Current Every Day Smoker Substance Use Type: None - Medications Home Medications: Home Medications Medication Instructions Recorded Confirmed Last Taken Type Duloxetine HCl [Cymbalta] 60 mg PO QDAY 04/20/19 07/05/19 Unknown History Levothyroxine [Synthroid] 25 mcg PO QAM 04/20/19 07/05/19 Unknown History Loratadine (Nf) [Claritin (Nf)] 10 mg PO DAILY 04/20/19 07/05/19 Unknown History Mirabegron [Myrbetriq] 25 mg PO QDAY 04/20/19 07/05/19 Unknown History clonazePAM [KlonoPIN] 0.5 mg PO BID PRN 04/20/19 07/05/19 Unknown History metFORMIN XR [Glucophage XR] 500 mg PO QDAY 04/20/19 07/05/19 Unknown History traZODone [Desyrel] 50 mg PO QHS 04/20/19 07/05/19 Unknown History Aspirin EC [Halfprin EC] 81 mg PO QDAY #30 tablet 07/06/19 Unknown Rx AtorvaSTATin [Lipitor] 40 mg PO QHS #30 tablet 07/06/19 Unknown Rx Pantoprazole [Protonix] 40 mg PO QDAY #30 tablet 07/06/19 Unknown Rx Clindamycin [Clindamycin CAP] 150 mg PO Q8HR #30 capsule 07/07/19 Unknown Rx Naproxen [Naprosyn] 500 mg PO BID PRN #20 tablet 07/07/19 Unknown Rx ARIPiprazole [Abilify TAB] 5 mg PO DAILY #30 tab 10/30/21 Unknown Rx PARoxetine [Paxil] 20 mg PO DAILY #30 tablet 10/30/21 Unknown Rx Trazodone HCl 150 mg PO QHS #30 tablet 10/30/21 Unknown Rx ED Physical Exam - General Limitations: No Limitations General appearance: alert, in no apparent distress - Head Head exam: Present: atraumatic, normocephalic, normal inspection - Eye Eye exam: Present: normal appearance, PERRL - ENT ENT exam: Present: normal exam, normal orophraynx, mucous membranes moist - Neck Neck exam: Present: normal inspection, full ROM. Absent: tenderness, meningismus - Respiratory Respiratory exam: Present: normal lung sounds bilaterally - Cardiovascular Cardiovascular Exam: Present: regular rate, normal rhythm, normal heart sounds - GI/Abdominal GI/Abdominal exam: Present: soft, normal bowel sounds. Absent: distended - Extremities Exam Extremities exam: Present: normal inspection, normal capillary refill - Neurological Exam Neurological exam: Present: alert, oriented X3, CN II-XII intact, motor sensory deficit (Chronic left-sided weakness) - Psychiatric Psychiatric exam: Present: anxious. Absent: homicidal ideation, suicidal ideation - Skin Skin exam: Present: warm, intact, normal color ED Course Vital Signs 10/31/21 00:20 Temperature 98.0 F Pulse Rate 88 Respiratory 15 Rate Blood Pressure 146/69 [Left] O2 Sat by Pulse 98 Oximetry ED Medical Decision Making - Medical Decision Making Patient is 60 years old female with history of hypertension, CVA and depression. Patient discharged from psychiatric area at this afternoon after she has been evaluated for suicidal ideation. Patient was waiting in the lobby for a ride and when the right got delayed patient became upset and she called the police st ating that she is suicidal and she is requesting transportation to the custodial. When I examined the patient patient is frustrated however admitted that she said suicidal because she get very upset with the system in [place] and she think the people are lazy and the not doing the job and she wish she can go back to [place]. Patient stated that if she can get a ride she will not think about suicide. Patient denied any visual or auditory hallucination. Patient is medically and psychiatrically stable to be discharged as planned. Critical care attestation.: If time is entered above; I have spent that time in minutes in the direct care of this critically ill patient, excluding procedure time. ED Disposition Clinical Impression: Suicidal ideation Disposition: HOME / SELF CARE / HOMELESS Is pt being admited?: No Condition: Stable Instructions: Suicidal Feelings: How to Help Yourself
== END 2021-10-31 02:10 | disposition home or self-care (01) ==
LOC: ED 23:41
DX: R45.851 Suicidal ideations (principal); I10 Essential (primary) hypertension; F41.9 Anxiety disorder, unspecified; E11.9 Type 2 diabetes mellitus without complications; F17.200 Nicotine dependence, unspecified, uncomplicated; Z88.0 Allergy status to penicillin; Z79.899 Other long term (current) drug therapy
CPT/HCPCS: 99282